=== PATIENT | female | born 1945 | race Caucasian/White ===

== ENCOUNTER → 2018-11-14 06:56 | Outpatient (CLI) | payer MEDICARE, BC, SELFPAY ==
--- NOTE | 2018-11-14 07:01 | BI_ITS ---
MAMMOGRAPHY - BILATERAL SCREENING REASON FOR EXAM: Female, 73 years old. Routine annual screening examination. PERTINENT HISTORY: Non-contributory. TECHNIQUE: Digital bilateral breast alem (3D mammographic acquisition) in the CC and MLO projections. 2-D mediolateral oblique (MLO) and craniocaudad (CC) views of both breasts were obtained. CAD: Full Field Digital Mammography with Computer Added Detection was performed. COMPARISON: Comparison is made with prior study dated October 15, 2017 and October 08, 2016. FINDINGS: Breast Composition: The breasts are heterogeneously dense, which may obscure small masses. There are no dominant masses or suspicious calcifications. No other significant abnormalities are identified. There has been no significant change since the prior study. BI/SCREENING MAMM (CAD), BILAT IMPRESSION: Stable bilateral screening mammogram. Yearly follow-up mammogram recommended. (A) ASSESSMENT CATEGORY: BIRADS Category 1: Negative. A letter regarding these results will be sent to the patient by the facility within 30 days. Approximately 10% of breast cancers are not detected by mammography. A normal mammogram should not delay biopsy of a clinically suspicious abnormality. [id number] Electronically Signed: Pool Chau MD at 9:00 EST Tel [phone], Service support ,
--- OUTSIDE RECORDS SUMMARY | 2019-02-15 16:43 | XMS RPT_ITS ---
:1945 Author Organization OHIP Care Team Providers Name Role Phone Rusty Milner Primary Care Unavailable JUAN DIEGO ISSA Referring Unavailable JUAN DIEGO ISSA Attending Unavailable AWA FARFAN Attending Unavailable AWA FARFAN Referring Unavailable Annia, Dr. Rusty Lala Primary Care Unavailable Annia, Dr. Rusty Lala Attending Unavailable Annia, Dr. Rusty Lala Referring Unavailable Annia, Dr. Rusty Lala Primary Care Unavailable EVELYN RIGGINS Attending Unavailable Annia, Dr. Rusty Lala Referring Unavailable Annia, Dr. 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 / Repository I71.4(ICD-10) PROCEDURES PROCEDURES No Procedure Records FoundRESULTS RESULTS SCREENING MAMM (CAD), Observed: 11/14/2018 Status: F Source: ERMELINDA LAFLEUR 7:01 AM [facility] REPOSITORY [facility] Imaging Services [address] [place] [address] SCREENING MAMM (CAD), BILAT MR#: [id number] Acct: [id number] Name: ZEESHAN ASHER Rep #: [id number] : 1945 F 73 From: Pool Chau MD PCP: Rusty Milner MD Status: REG CLI Study: SCREENING MAMM (CAD), BILAT Date of Exam: 11/14/18 Exam# [id number] Ordering Dr: Juan Diego Issa MAMMOGRAPHY - BILATERAL SCREENING REASON FOR EXAM: Female, 73 years old. Routine annual screening examination. PERTINENT HISTORY: Non-contributory. TECHNIQUE: Digital bilateral breast alem (3D mammographic acquisition) in the CC and MLO projections. 2-D mediolateral oblique (MLO) and craniocaudad (CC) views of both breasts were obtained. CAD: Full Field Digital Mammography with Computer Added Detection was performed. COMPARISON: Comparison is made with prior study dated October 15, 2017 and October 08, 2016. FINDINGS: Breast Composition: The breasts are heterogeneously dense, which may obscure small masses. There are no dominant masses or suspicious calcifications. No other significant abnormalities are identified. There has been no significant change since the prior study. BI/SCREENING MAMM (CAD), BILAT IMPRESSION: Stable bilateral screening mammogram. Yearly follow-up mammogram recommended. (A) ASSESSMENT CATEGORY: BIRADS Category 1: Negative. A letter regarding these results will be sent to the patient by the facility within 30 days. Approximately 10% of breast cancers are not detected by mammography. A normal mammogram should not delay biopsy of a clinically suspicious abnormality. [id number] Electronically Signed: oPol Chau MD at 9:00 EST Tel [phone], Service support , CC: JUAN DIEGO ISSA; Rusty Milner MD Pilot Teacher: Signed OFFICE VISIT (FAMILY Observed: 10/10/2018 Status: UNK Source: [facility] 5:52 AM HOSPITALS REPOSITORY Chief Complaint ZEESHAN ASHER is here for a follow-up for blood pressure. Patient would like to discuss the itching. Statess she has a few questions she would like to ask. Medication refills sent. Patient refused the flu shot. History of Present Illness Pt has a history of hypertension. Today in the office she feels more tense and she feels tense when her blood pressure is high. Pt has been checking blood pressure at home. Most of her blood pressure re adings at home are normal. Pt has a history of itching that she takes Hydroxyzine as need, which she believes is helping her. Pt has a history of hypothyroid, which she takes Levothyroxine daily. In July her labs were normal. Pt is not having any chest pains when she is walking. Review of Systems Constitutional: no chills, no fever and no night sweats. Eyes: no blurred vision and no eyesight problems. ENT: no hearing loss, no nasal congestion, no nasal discharge, no hoarseness and no sore throat. Neck: no mass(es) and no swelling. Cardiovascular: no chest pain, no intermittent leg claudication, no lower extremity edema, no palpitations and no syncope. Respiratory: no cough, no shortness of breath during exertion, no shortness of breath at rest and no wheezing. Gastrointestinal: no abdominal pain, no blood in stools, no constipation, no diarrhea, no melena, no nausea, no rectal pain and no vomiting. Genitourinary: no dysuria, no change in urinary frequency, no urinary hesitancy, no feelings of urinary urgency and no vaginal discharge. Musculoskeletal: no arthralgias, no back pain and no myalgias. Integumentary: no new skin lesions and no rashes. Neurological: no difficulty walking, no headache, no limb weakness, no numbness and no tingling. Psychiatric: no anxiety, no depression, no anhedonia and no substance use disorders. Endocrine: no recent weight gain and no recent weight loss. Hematologic/Lymphatic: no tendency for easy bruising and no swollen glands. 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) Benign essential hypertension (401.1) (I10) Added by Problem List Migration; 2013-11-01 Chest pain (786.50) (R07.9) Cough (786.2) (R05) Hyperlipidemia (272.4) (E78.5) Hypothyroidism (244.9) (E03.9) Immunization due (V05.9) (Z23) Insomnia (780.52) (G47.00) Itching (698.9) (L29.9) Osteopenia (733.90) (M85.80) Palpable abdominal aorta (785.9) (R09.89) Post-menopause (V49.81) (Z78.0) Vitamin D deficiency (268.9) (E55.9) Weight loss, unintentional (783.21) (R63.4) Past Medical History History of Acute laryngitis (464.00) (J04.0) History of Contusion of foot, left (924.20) (S90.32XA) History of Cough (786.2) (R05) History of Elevated alkaline phosphatase level (790.5) (R74.8) History of acute pharyngitis (V12.69) (Z87.09) History of arthritis (V13.4) (Z87.39) History of bone density study (V15.89) (Z92.89) 09/29/2012 osteopenia re-check in 2 years History of eczema (V13.3) (Z87.2) Added by Problem List Migration; 2013-10-31 History of hypertension (V12.59) (Z86.79) History of low back pain (V13.59) (Z87.39) History of psoriasis (V13.3) (Z87.2) History of sciatica (V12.49) (Z86.69) History of thyroid disorder (V12.29) (Z86.39) History of urinary frequency (V13.09) (Z87.898) History of Osteopenia (733.90) (M85.80) Added by Problem List Migration; 2013-11-01 History of Osteoporosis screening (V82.81) (Z13.820) History of Right knee pain (719.46) (M25.561) Surgical History History of Dilation And Curettage Family History Family history of Parkinson's disease (V17.2) (Z82.0) Family history of thyroid disease (V18.19) (Z83.49) Family history of Family history of diabetes mellitus (V18.0) (Z83.3) Family history of diabetes mellitus (V18.0) (Z83.3) Family history of hypertension (V17.49) (Z82.49) Social History Caffeine use (V49.89) (Z78.9) Daily caffeine consumption, 1 serving a day Exercises four times a week Never a smoker No alcohol use 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 Allergies No Known Drug Allergies Recorded By: Marimar Reynolds; 01/08/2014 4:32:04 PM Current Meds HydrALAZINE HCl - 10 MG Oral Tablet; TAKE 1 TABLET 3 times daily; Therapy: 23Vzc2282 to (Evaluate:21Dec2018) Requested for: 93Yoc9930; Last Rx:81Vag3073 Ordered Rx By: Rusty Milner; Dispense: 30 Days ; #:90 Tablet; Refill: 3;For: Benign essential hypertension; BULMARO = N; Verified Transmission to [address]; Msg to Pharmacy: this will letty e the place of the amlodipine; Last Updated By: MavenHut; 08/23/2018 9:05:29 AM Levothyroxine Sodium 75 MCG Oral Tablet; TAKE 1 TABLET DAILY DIRECTED; Therapy: 96Knf1881 to (Evaluate:67Pww0254) Requested for: 85Cau6444; Last Rx:70Pgx1927 Ordered Rx By: Rusty Milner; Dispense: 90 Days ; #:90 Tablet; Refill: 3;For: Hypothyroidism; BULMARO = N; Verified Transmission to [address]; Last Updated By: MavenHut; 06/07/2018 5:15:12 PM Melatonin 5 MG Oral Tablet; TAKE 1 TABLET Bedtime; Therapy: 32Vuy2989 to (Evaluate:24Api0368); Last Rx:24Dec2017 Ordered Rx By: Rusty Milner; Dispense: 30 Days ; #:30 Tablet; Refill: 6;For: Insomnia; BULMARO = N; Record HydrOXYzine Pamoate 25 MG Oral Capsule; TAKE 1 CAPSULE 3 TIMES DAILY NEEDED FOR ITCHING; Therapy: 63Shd7084 to (Evaluate:12Okt3432) Requested for: 08Mar2018; Last Rx:08Mar2018 Ordered Rx By: Rusty Milner; Dispense: 20 Days ; #:30 Capsule; Refill: 1;For: Itching; BULMARO = N; Verified Transmission to [address]; Last Updated By: MavenHut; 10/04/2018 5:18:02 PM Halobetasol Propionate 0.05 % External Ointment; APPLY SPARINGLY TO AFFECTED AREA(S) ONCE DAILY; Therapy: 13Whc5407 to (Last Rx:58Ayc3426) Requested for: 29May2014 Ordered Rx By: Rusty Milner; Dispense: 0 Days ; #:1 X 50 GM Tube; Refill: 0;For: PMH: History of eczema; BULMARO = N; Verified Transmission to [address]; Last Updated By: MavenHut; 05/29/2014 5:30:33 PM Vitamin D (Ergocalciferol) 81364 UNIT Oral Capsule; TAKE 1 CAPSULE WEEKLY; Therapy: 24Dec2016 to (Last Rx:09Fei9979) Requested for: 07Jun2017 Ordered Rx By: Rusty Milner; Dispense: 0 Days ; #:4 Capsule; Refill: 6;For: Vitamin D deficiency; BULMARO = N; Verified Transmission to [address]; Last Updated By: MavenHut; 06/07/2017 12:24:32 PM Hydrocortisone 2.5 % External Cream; Therapy: 42Cbc0865 to Recorded Dispense: 10 Days ; #:28; Refill: 0; BULMARO = N; Record; Last Updated By: Pretty Clark; 01/25/2014 7:55:49 AM Lotemax 0.5 % Ophthalmic Suspension; Therapy: 18Dec2015 to Recorded Dispense: 25 Days ; #:5; Refill: 0; BULMARO = N; Record; Last Updated By: Rusty Milner; 10/02/2016 9:57:39 AM Magnesium 500 MG Oral Tablet; Therapy: (Recorded:74Owe1487) to Recorded Dispense: 0 Days ; #: Sufficient; Refill: 0; BULMARO = N; Record; Last Updated By: Pretty Clark; 09/11/2016 9:19:36 AM Multi Vitamin Daily TABS; Therapy: (Recorded:19Vvm6854) to Recorded Dispense: 0 Days ; #: Sufficient; Refill: 0; BULMARO = N; Record; Last Updated By: Pretty Clark; 11/04/2015 7:25:18 AM [place] 3 CAPS; Therapy: (Recorded:00Eje3831) to Recorded Dispense: 0 Days ; #: Sufficient; Refill: 0; BULMARO = N; Record; Last Updated By: Pretty Clark; 11/04/2015 7:25:18 AM Os-Artem TABS; Therapy: (Recorded:57Asl3863) to Recorded Dispense: 0 Days ; #: Sufficient; Refill: 0; BULMARO = N; Record; Last Updated By: Pretty Clark; 09/11/2016 9:19:36 AM Vitamin E 100 UNIT Oral Capsule; Therapy: (Recorded:64Qtm8741) to Recorded Dispense: 0 Days ; #: Sufficient; Refill: 0; BULMARO = N; Record; Last Updated By: Pretty Clark; 11/04/2015 7:25:18 AM V-R Vitamin C TABS; Therapy: (Recorded:43Jjd2650) to Recorded Dispense: 0 Days ; #: Sufficient; Refill: 0; BULMARO = N; Record; Last Updated By: Pretty Clark; 11/04/2015 7:25:18 AM Vitals Vital Signs Recorded: 04Oct2018 09:12AMRecorded: 04Oct2018 08:40AM Jfuyugdr140, LUE, Gllgxg195, RUE, Sitting Ntwuifnvh15, LUE, Ptlfxd14, RUE, Sitting Xpslhikjyye25.7 F, Oral Heart Rate53 Tuqoekygroh93 Blood Pressure Cuff SizeAdult Zytblx844 lb 5 oz BMI Wdenffmiid21 BSA Calculated1.58 O2 Klwjwyvbus12, RA LMPpm Physical Exam Constitutional: Alert and in no acute distress. Well developed, well nourished. Eyes: Normal external exam. Pupils were equal in size, round, reactive to light (PERRL) with normal accommodation and extraocular movements intact (EOMI). Ears, Nose, Mouth, and Throat: External inspection of ears and nose: Normal. Hearing: Normal. Nasal mucosa, septum, and turbinates: Normal. Lips, teeth, and gums: Normal. Oropharynx: Normal. Neck: No neck mass was observed. Supple. Thyroid not enlarged and there were no palpable thyroid nodules. Cardiovascular: Heart rate and rhythm were normal, normal S1 and S2, no gallops, no murmurs and no pericardial rub. Pedal pulses: Normal. No peripheral edema. Pulmonary: No respiratory distress. Clear bilateral breath sounds. Abdomen: Soft nontender; no abdominal mass palpated. No organomegaly. Musculoskeletal: No joint swelling seen, normal movements of all extremities. Range of motion: Normal. Muscle strength/tone: Normal. Skin: Normal skin color and pigmentation, normal skin turgor, and no rash. Psychiatric: Judgment and insight: Intact. Mood and affect: Normal. Lymphatic: No cervical lymphadenopathy. Diagnoses/Problems Encounter for preventive health examination (V70.0) (Z00.00) Benign essential hypertension (401.1) (I10) Added by Problem List Migration; 2013-11-01 Insomnia (780.52) (G47.00) Itching (698.9) (L29.9) Hypothyroidism (244.9) (E03.9) Vitamin D deficiency (268.9) (E55.9) Orders Itching Renew: HydrOXYzine Pamoate 25 MG Oral Capsule; TAKE 1 CAPSULE 3 TIMES DAILY NEEDED FOR ITCHING Rx By: Rusty Milner; Dispense: 20 Days ; #:30 Capsule; Refill: 1;For: Itching; BULMARO = N; Verified Transmission to [facility]; Last Updated By: Deborah Parekh; 10/04/2018 5:18:02 PM Patient Discussion/Summary Over 1 history of hypertension. Today in the office your initial blood pressure was elevated. Repeat blood pressure is more normal. You've been checking her blood pressures at home and most of your blood pressures at home are normal. I'll ask that you keep checking her blood pressure at home I would want you to call me if the top number at home is above 150 on more than 3 days in a row or the bottom numbers above 90 for more than 3 days in a row Please remember to take the hydralazine 10 mg 3 times a day once in the morning once in the afternoon once in the evening Continue eating a healthy diet rich with fresh fruits fresh vegetables and lean proteins trying to avoid processed carbohydrates her simple sugars. Continue with regular exercise 30 minutes of walking every day is ideal #2 history of hypothyroid. Please stay on your current thyroid medication recent thyroid testing is normal this indicates you are taking the correct thyroid dose #3 recurrent itching. Please stay on your current dose of hydroxyzine 25 mg as needed for itching. #4 all other labs done recently are normal including her vitamin D If you remain healthy I would like to see you back in 4 months for follow-up. Signatures Electronically signed by : Rusty Milner MD; Oct 10 2018 5:52AM EST (Author) OFFICE VISIT (FAMILY Observed: 08/23/2018 Status: UNK Source: [facility]) 9:30 AM HOSPITALS REPOSITORY Chief Complaint ZEESHAN ASHER is here for a follow-up for blood pressure . Patient has a few things she would like to discuss today. No medication refills sent. Patient refused the flu shot. History of Present Illness Zeeshan is a 73 year old female, who presents today for a re- evaluation of of her blood pressure. She is currently taking Amlodipine, 5 mg for hypertension management. She is feeling side effects caused by the medication, she is having a chest sensation that she cannot describe, and she was having a slight headache. She stopped taking the medication to see if the symptoms would stop. She is currently taking Levothyroxine, 75 MCG for hypothyroid management. She is also taking Melatonin, 5 mg for insomnia management. She is taking Vitamin D 529842 UNIT for Vitamin D deficiency. Review of Systems Constitutional: no chills, no fever and no night sweats. Eyes: no blurred vision and no eyesight problems. ENT: no hearing loss, no nasal congestion, no nasal discharge, no hoarseness and no sore throat. Neck: no mass(es) and no swelling. Cardiovascular: no chest pain, no intermittent leg claudication, no lower extremity edema, no palpitations and no syncope. Respiratory: no cough, no shortness of breath during exertion, no shortness of breath at rest and no wheezing. Gastrointestinal: no abdominal pain, no blood in stools, no constipation, no diarrhea, no melena, no nausea, no rectal pain and no vomiting. Genitourinary: no dysuria, no change in urinary frequency, no urinary hesitancy, no feelings of urinary urgency and no vaginal discharge. Musculoskeletal: no arthralgias, no back pain and no myalgias. Integumentary: no new skin lesions and no rashes. Neurological: no difficulty walking, no headache, no limb weakness, no numbness and no tingling. Psychiatric: no anxiety, no depression, no anhedonia and no substance use disorders. Endocrine: no recent weight gain and no recent weight loss. Hematologic/Lymphatic: no tendency for easy bruising and no swollen glands. 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) Benign essential hypertension (401.1) (I10) Added by Problem List Migration; 2013-11-01 Cough (786.2) (R05) Hyperlipidemia (272.4) (E78.5) Hypothyroidism (244.9) (E03.9) Immunization due (V05.9) (Z23) Insomnia (780.52) (G47.00) Itching (698.9) (L29.9) Osteopenia (733.90) (M85.80) Palpable abdominal aorta (785.9) (R09.89) Post-menopause (V49.81) (Z78.0) Vitamin D deficiency (268.9) (E55.9) Weight loss, unintentional (783.21) (R63.4) Past Medical History History of Acute laryngitis (464.00) (J04.0) History of Contusion of foot, left (924.20) (S90.32XA) History of Cough (786.2) (R05) History of Elevated alkaline phosphatase level (790.5) (R74.8) History of acute pharyngitis (V12.69) (Z87.09) History of arthritis (V13.4) (Z87.39) History of bone density study (V15.89) (Z92.89) 09/29/2012 osteopenia re-check in 2 years History of eczema (V13.3) (Z87.2) Added by Problem List Migration; 2013-10-31 History of hypertension (V12.59) (Z86.79) History of low back pain (V13.59) (Z87.39) History of psoriasis (V13.3) (Z87.2) History of sciatica (V12.49) (Z86.69) History of thyroid disorder (V12.29) (Z86.39) History of urinary frequency (V13.09) (Z87.898) History of Osteopenia (733.90) (M85.80) Added by Problem List Migration; 2013-11-01 History of Osteoporosis screening (V82.81) (Z13.820) History of Right knee pain (719.46) (M25.561) Surgical History History of Dilation And Curettage Family History Family history of Parkinson's disease (V17.2) (Z82.0) Family history of thyroid disease (V18.19) (Z83.49) Family history of Family history of diabetes mellitus (V18.0) (Z83.3) Family history of diabetes mellitus (V18.0) (Z83.3) Family history of hypertension (V17.49) (Z82.49) Social History Caffeine use (V49.89) (Z78.9) Daily caffeine consumption, 1 serving a day Exercises four times a week Never a smoker No alcohol use 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 Allergies No Known Drug Allergies Recorded By: Marimar Reynolds; 01/08/2014 4:32:04 PM Current Meds AmLODIPine Besylate 5 MG Oral Tablet; TAKE 1 TABLET DAILY; Therapy: 17Yfe3587 to (Evaluate:84Una7194) Requested for: 33Fnu9754; Last Rx:73Okn4111 Ordered Rx By: Rusty Milner; Dispense: 30 Days ; #:30 Tablet; Refill: 6;For: Benign essential hypertension; BULMARO = N; Verified Transmission to [address]; Last Updated By: Meghna Parekh; 08/23/2018 8:56:01 AM Levothyroxine Sodium 75 MCG Oral Tablet; TAKE 1 TABLET DAILY DIRECTED; Therapy: 85Cel4162 to (Evaluate:67Xvi3106) Requested for: 32Ola3821; Last Rx:14Efc1434 Ordered Rx By: Rusty Milner; Dispense: 90 Days ; #:90 Tablet; Refill: 3;For: Hypothyroidism; BULMARO = N; Verified Transmission to [address]; Last Updated By: MavenHut; 06/07/2018 5:15:12 PM Melatonin 5 MG Oral Tablet; TAKE 1 TABLET Bedtime; Therapy: 84Qjx0636 to (Evaluate:53Axn6971); Last Rx:24Dec2017 Ordered Rx By: Rusty Milner; Dispense: 30 Days ; #:30 Tablet; Refill: 6;For: Insomnia; BULMARO = N; Record HydrOXYzine Pamoate 25 MG Oral Capsule; TAKE 1 CAPSULE 3 TIMES DAILY NEEDED FOR ITCHING; Therapy: 00Hfo8538 to (Evaluate:88Xxi8762) Requested for: 06Ssn3791; Last Rx:08Mar2018 Ordered Rx By: Rusty Milner; Dispense: 20 Days ; #:30 Capsule; Refill: 1;For: Itching; BULMARO = N; Verified Transmission to [address]; Last Updated By: MavenHut; 03/08/2018 8:06:31 AM Halobetasol Propionate 0.05 % External Ointment; APPLY SPARINGLY TO AFFECTED AREA(S) ONCE DAILY; Therapy: 84Wfn8035 to (Last Rx:53Wvc1782) Requested for: 60Omk2159 Ordered Rx By: Rusty Milner; Dispense: 0 Days ; #:1 X 50 GM Tube; Refill: 0;For: PMH: History of eczema; BULMARO = N; Verified Transmission to [address]; Last Updated By: MavenHut; 05/29/2014 5:30:33 PM Vitamin D (Ergocalciferol) 52474 UNIT Oral Capsule; TAKE 1 CAPSULE WEEKLY; Therapy: 24Dec2016 to (Last Rx:22Lhd1908) Requested for: 01Ral6295 Ordered Rx By: Rusty Milner; Dispense: 0 Days ; #:4 Capsule; Refill: 6;For: Vitamin D deficiency; BULMARO = N; Verified Transmission to [address]; Last Updated By: Deborah Parekh; 06/07/2017 12:24:32 PM Hydrocortisone 2.5 % External Cream; Therapy: 27Ifi3976 to Recorded Dispense: 10 Days ; #:28 CREA; Refill: 0; BULMARO = N; Record; Last Updated By: Pretty Clark; 01/25/2014 7:55:49 AM Lotemax 0.5 % Ophthalmic Suspension; Therapy: 18Dec2015 to Recorded Dispense: 25 Days ; #:5 SUSP; Refill: 0; BULMARO = N; Record; Last Updated By: Rusty Milner; 10/02/2016 9:57:39 AM Magnesium 500 MG Oral Tablet; Therapy: (Recorded:11Sep2016) to Recorded Dispense: 0 Days ; #: Sufficient TABS; Refill: 0; BULMARO = N; Record; Last Updated By: Pretty Clark; 09/11/2016 9:19:36 AM Multi Vitamin Daily TABS; Therapy: (Recorded:74Ujg6030) to Recorded Dispense: 0 Days ; #: Sufficient TABS; Refill: 0; BULMARO = N; Record; Last Updated By: Pretty Clark; 11/04/2015 7:25:18 AM [place] 3 CAPS; Therapy: (Recorded:41Rvh2709) to Recorded Dispense: 0 Days ; #: Sufficient CAPS; Refill: 0; BULMARO = N; Record; Last Updated By: Pretty Clark; 11/04/2015 7:25:18 AM Os-Artem TABS; Therapy: (Recorded:11Sep2016) to Recorded Dispense: 0 Days ; #: Sufficient TABS; Refill: 0; BULMARO = N; Record; Last Updated By: Pretty Clark; 09/11/2016 9:19:36 AM Vitamin E 100 UNIT Oral Capsule; Therapy: (Recorded:95Ygi5021) to Recorded Dispense: 0 Days ; #: Sufficient CAPS; Refill: 0; BULMARO = N; Record; Last Updated By: Pretty Clark; 11/04/2015 7:25:18 AM V-R Vitamin C TABS; Therapy: (Recorded:05Sge2702) to Recorded Dispense: 0 Days ; #: Sufficient TABS; Refill: 0; BULMARO = N; Record; Last Updated By: Pretty Clark; 11/04/2015 7:25:18 AM Vitals Vital Signs Recorded: 23Aug2018 07:59AM Gntgapwgpcc55.9 F, Oral Heart Rate54 Rstsnlbzpoh00 Yzopyfaa194, LUE, Sitting Xhnxfkzkx21, LUE, Sitting Blood Pressure Cuff SizeAdult Lozxdl689 lb BMI Bwumnrzkdt16.56 BSA Calculated1.57 O2 Ndqjmzrhxi60, RA LMPpm Physical Exam Constitutional: Alert and in no acute distress. Well developed, well nourished. Ears, Nose, Mouth, and Throat: External inspection of ears and nose: Normal. Otoscopic examination: Normal. Hearing: Normal. Oropharynx: Normal. Cardiovascular: Heart rate and rhythm were normal, normal S1 and S2, no gallops, no murmurs and no pericardial rub. Pulmonary: No respiratory distress. Clear bilateral breath sounds. Abdomen: Soft nontender; no abdominal mass palpated. Normal bowel sounds. Psychiatric: Judgment and insight: Intact. Mood and affect: Normal. Lymphatic: No cervical lymphadenopathy. Results/Data Ireviewed the EKG sinus bradycardia Diagnoses/Problems Chest pain (786.50) (R07.9) Benign essential hypertension (401.1) (I10) Orders Benign essential hypertension Start: HydrALAZINE HCl - 10 MG Oral Tablet; TAKE 1 TABLET 3 times daily Rx By: Rusty Milner; Dispense: 30 Days ; #:90 Tablet; Refill: 3;For: Benign essential hypertension; BULMARO = N; Verified Transmission to [facility]; Msg to Pharmacy: this will take the place of the amlodipine; Last Updated By: MavenHut; 08/23/2018 9:05:29 AM Chest pain IO EKG Electrocardiogram- 12 Lead; Status:Complete; Done: 23Aug2018 Perform:In Office; Due:85Lrj3297;Ordered; For:Chest pain; Ordered By:Rusty Milner; Provider Impressions #1 hypertension. We recently started you on amlodipine 5 mg once a day every day. The amlodipine didn't bring her blood pressure down however you develop the discomfort in the chest. You discontinue the amlodipine and t he discomfort in the chest improved. Today in the office we did an EKG which shows normal sinus rhythm no signs of any heart damage. The EKG does show that your heart is healthy. At this time I'm recommending that you start on hydralazine 10 milligrams one pill 3 times a day. This medication will help lower the blood pressure without causing side effects. Please check blood pres sures at home on this medicine. call me if you have side effects. With the elevated blood pressure would like to see back in 6 weeks to reevaluate Patient Discussion/Summary #1 hypertension. We recently started you on amlodipine 5 mg once a day every day. The amlodipine didn't bring her blood pressure down however you develop the discomfort in the chest. You discontinue the amlodipine and t he discomfort in the chest improved. Today in the office we did an EKG which shows normal sinus rhythm no signs of any heart damage. The EKG does show that your heart is healthy. At this time I'm recommending that you start on hydralazine 10 milligrams one pill 3 times a day. This medication will help lower the blood pressure without causing side effects. Please check blood pres sures at home on this medicine. call me if you have side effects. With the elevated blood pressure would like to see back in 6 weeks to reevaluate. By signing my name below, I, Sarai Garza, attest that this documentation has been prepared under the direction and in the presence of Dr. Rusty Milner. All medical record entries made by the Joseibe were at my direction and personally dictated by me. I have reviewed the chart and agree that the record accurately reflects my personal performance of the h istory, physical exam, discussion and plan. End of Encounter Meds Halobetasol Propionate 0.05 % External Ointment; APPLY SPARINGLY TO AFFECTED AREA(S) ONCE DAILY; Therapy: 10Wcn8230 to (Last Rx:79Qkl8285) Requested for: 67Cqa7120 Ordered HydrALAZINE HCl - 10 MG Oral Tablet; TAKE 1 TABLET 3 times daily; Therapy: 39Kwy3926 to (Evaluate:21Dec2018) Requested for: 57Bxq3276; Last Rx:43Dfm5586 Ordered Hydrocortisone 2.5 % External Cream; Therapy: 36Uhj4015 to Recorded HydrOXYzine Pamoate 25 MG Oral Capsule; TAKE 1 CAPSULE 3 TIMES DAILY NEEDED FOR ITCHING; Therapy: 44Yix6495 to (Evaluate:21Whj4523) Requested for: 43Hoa5001; Last Rx:08Mar2018 Ordered Levothyroxine Sodium 75 MCG Oral Tablet; TAKE 1 TABLET DAILY DIRECTED; Therapy: 02Joz0503 to (Evaluate:54Blm5125) Requested for: 48Umm3810; Last Rx:65Gyi4955 Ordered Lotemax 0.5 % Ophthalmic Suspension; Therapy: 18Dec2015 to Recorded Magnesium 500 MG Oral Tablet; Therapy: (Recorded:11Sep2016) to Recorded Melatonin 5 MG Oral Tablet; TAKE 1 TABLET Bedtime; Therapy: 04Fve6089 to (Evaluate:16Geg4569); Last Rx:24Dec2017 Ordered Multi Vitamin Daily TABS; Therapy: (Recorded:31Njv6703) to Recorded [place] 3 CAPS; Therapy: (Recorded:35Kif6299) to Recorded Os-Artem TABS; Therapy: (Recorded:11Sep2016) to Recorded Vitamin D (Ergocalciferol) 89728 UNIT Oral Capsule; TAKE 1 CAPSULE WEEKLY; Therapy: 24Dec2016 to (Last Rx:62Pgn2716) Requested for: 07Jun2017 Ordered Vitamin E 100 UNIT Oral Capsule; Therapy: (Recorded:82Mqy1575) to Recorded V-R Vitamin C TABS; Therapy: (Recorded:33Swk9178) to Recorded Signatures Electronically signed by : SARAI Garza; Aug 23 2018 8:51AM EST (Co-author) Electronically signed by : Rusty Milner MD; Aug 23 2018 9:30AM EST (Author) VASC LAB ABDOMINAL Observed: 08/10/2018 Status: F Source: [facility] AORTA/ILIAC/IVC ULTRA 6:38 AM [facility], [address] [place] [address], [address], [place] [address] and Vascular Lab Report Abdominal Aorta Iliac Ultrasound/IVC Ultrasound Patient Name: ZEESHAN Latham LB Reading Physician: [id number] Konrad Huerta DO Study Date: 08/10/2018 Referring Physician: Rusty Milner MD MRN/PID: [id number] PCP: Accession/Order#: [id number] CC Report to: Date of : 1945 Technologist: Jany Olivas RVT, RDMS Gender: F Technologist 2: Admission Status: Outpatient Location Performed: [facility] Diagnosis/ICD: I71.3-Abdominal aortic aneurysm, ruptured Procedure/CPT: 73355 Ultrasound, abdominal aorta, real time with image documentation, screening study for (AAA) CONCLUSIONS: Aorta/Common Iliac Arteries/IVC: The abdominal aorta and bilateral common iliac arteries demonstrate no evidence of aneurysm. Imaging & Doppler Findings: AORTA AP PSV Proximal 1.5 cm 84.0 cm/s Mid 1.4 cm 74.0 cm/s Distal 1.4 cm 71.0 cm/s RIGHT AP PSV NICOLE Proximal 0.80 cm 91.00 cm/s LEFT AP PSV NICOLE Proximal 0.80 cm 94.00 cm/s [id number] Konrad Huerta DO Final OFFICE VISIT (FAMILY Observed: 08/09/2018 Status: UNK Source: [facility] 8:39 AM HOSPITALS REPOSITORY Chief Complaint ZEESHAN ASHER is here for a follow-up for medication . Patient would like to discuss her blood pressure medication. No medication refills sent. Patient would like to discuss the flu shot and getting the l ower dose. Patient may be due for a colonoscopy. History of Present Illness Zeeshan is a 73 year old female, who presents today for medication follow up. She is currently taking Losartan, 50 mg for Hypertension management. She states that she stopped taking this medication in May due to side effects, she states that she did not feel right. She is also taking Levothyroxine, 75 MCG for Hypothyroidism management. She is taking Melatonin, 5 mg for insomnia management. She is also taking Vitamin D, 83218 UNIT for Vitamin D deficiency. She states that her itching is still there. She does not have any chest pain, headaches, or swelling in her ankles. She states that she is still using eye drops. Review of Systems Constitutional: no chills, no fever and no night sweats. Eyes: no blurred vision and no eyesight problems. ENT: no hearing loss, no nasal congestion, no nasal discharge, no hoarseness and no sore throat. Neck: no mass(es) and no swelling. Cardiovascular: no chest pain, no intermittent leg claudication, no lower extremity edema, no palpitations and no syncope. Respiratory: no cough, no shortness of breath during exertion, no shortness of breath at rest and no wheezing. Gastrointestinal: no abdominal pain, no blood in stools, no constipation, no diarrhea, no melena, no nausea, no rectal pain and no vomiting. Genitourinary: no dysuria, no change in urinary frequency, no urinary hesitancy, no feelings of urinary urgency and no vaginal discharge. Musculoskeletal: no arthralgias, no back pain and no myalgias. Integumentary: no new skin lesions and no rashes. Neurological: no difficulty walking, no headache, no limb weakness, no numbness and no tingling. Psychiatric: no anxiety, no depression, no anhedonia and no substance use disorders. Endocrine: no recent weight gain and no recent weight loss. Hematologic/Lymphatic: no tendency for easy bruising and no swollen glands. 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) Benign essential hypertension (401.1) (I10) Added by Problem List Migration; 2013-11-01 Cough (786.2) (R05) Hyperlipidemia (272.4) (E78.5) Hypothyroidism (244.9) (E03.9) Insomnia (780.52) (G47.00) Itching (698.9) (L29.9) Osteopenia (733.90) (M85.80) Post-menopause (V49.81) (Z78.0) Vitamin D deficiency (268.9) (E55.9) Weight loss, unintentional (783.21) (R63.4) Past Medical History History of Acute laryngitis (464.00) (J04.0) History of Contusion of foot, left (924.20) (S90.32XA) History of Cough (786.2) (R05) History of Elevated alkaline phosphatase level (790.5) (R74.8) History of acute pharyngitis (V12.69) (Z87.09) History of arthritis (V13.4) (Z87.39) History of bone density study (V15.89) (Z92.89) 09/29/2012 osteopenia re-check in 2 years History of eczema (V13.3) (Z87.2) Added by Problem List Migration; 2013-10-31 History of hypertension (V12.59) (Z86.79) History of low back pain (V13.59) (Z87.39) History of psoriasis (V13.3) (Z87.2) History of sciatica (V12.49) (Z86.69) History of thyroid disorder (V12.29) (Z86.39) History of urinary frequency (V13.09) (Z87.898) History of Osteopenia (733.90) (M85.80) Added by Problem List Migration; 2013-11-01 History of Osteoporosis screening (V82.81) (Z13.820) History of Right knee pain (719.46) (M25.561) Surgical History History of Dilation And Curettage Family History Family history of Parkinson's disease (V17.2) (Z82.0) Family history of thyroid disease (V18.19) (Z83.49) Family history of Family history of diabetes mellitus (V18.0) (Z83.3) Family history of diabetes mellitus (V18.0) (Z83.3) Family history of hypertension (V17.49) (Z82.49) Social History Caffeine use (V49.89) (Z78.9) Daily caffeine consumption, 1 serving a day Exercises four times a week Never a smoker No alcohol use 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 Allergies No Known Drug Allergies Recorded By: Marimar Reynolds; 01/08/2014 4:32:04 PM Current Meds Losartan Potassium 50 MG Oral Tablet; TAKE 1 TABLET DAILY; Therapy: 61Jis1651 to (Evaluate:51Uyc2978) Requested for: 05Jrr7307; Last Rx:58Bkw3697 Ordered Rx By: Rusty Milner; Dispense: 30 Days ; #:30 Tablet; Refill: 3;For: Benign essential hypertension; BULMARO = N; Verified Transmission to [facility] [address] [place] [address]; Msg to Pharmacy: She is no kalpesh mohit taking the lisinopril/HCTZ; Last Updated By: MavenHut; 08/09/2018 8:35:39 AM Levothyroxine Sodium 75 MCG Oral Tablet; TAKE 1 TABLET DAILY DIRECTED; Therapy: 66Utt1226 to (Evaluate:71Oyq4231) Requested for: 76Khz3195; Last Rx:33Adr4483 Ordered Rx By: Rusty Milner; Dispense: 90 Days ; #:90 Tablet; Refill: 3;For: Hypothyroidism; BULMARO = N; Verified Transmission to [address]; Last Updated By: MavenHut; 06/07/2018 5:15:12 PM Melatonin 5 MG Oral Tablet; TAKE 1 TABLET Bedtime; Therapy: 42Njp0427 to (Evaluate:15Qkg6738); Last Rx:24Dec2017 Ordered Rx By: Rusty Milner; Dispense: 30 Days ; #:30 Tablet; Refill: 6;For: Insomnia; BULMARO = N; Record HydrOXYzine Pamoate 25 MG Oral Capsule; TAKE 1 CAPSULE 3 TIMES DAILY NEEDED FOR ITCHING; Therapy: 00Wkt6294 to (Evaluate:38Gpy8532) Requested for: 70Fbh2715; Last Rx:49Zwm2874 Ordered Rx By: Rusty Milner; Dispense: 20 Days ; #:30 Capsule; Refill: 1;For: Itching; BULMARO = N; Verified Transmission to [address]; Last Updated By: MavenHut; 03/08/2018 8:06:31 AM Halobetasol Propionate 0.05 % External Ointment; APPLY SPARINGLY TO AFFECTED AREA(S) ONCE DAILY; Therapy: 92Nqb5072 to (Last Rx:62Djm4091) Requested for: 20Cva9197 Ordered Rx By: Rusty Milner; Dispense: 0 Days ; #:1 X 50 GM Tube; Refill: 0;For: PMH: History of eczema; BULMARO = N; Verified Transmission to [address]; Last Updated By: MavenHut; 05/29/2014 5:30:33 PM Vitamin D (Ergocalciferol) 99474 UNIT Oral Capsule; TAKE 1 CAPSULE WEEKLY; Therapy: 24Dec2016 to (Last Rx:29Vsl7630) Requested for: 67Cwg4796 Ordered Rx By: Rusty Milner; Dispense: 0 Days ; #:4 Capsule; Refill: 6;For: Vitamin D deficiency; BULMARO = N; Verified Transmission to [address]; Last Updated By: Deborah Parekh; 06/07/2017 12:24:32 PM Hydrocortisone 2.5 % External Cream; Therapy: 20Zjq3898 to Recorded Dispense: 10 Days ; #:28 CREA; Refill: 0; BULMARO = N; Record; Last Updated By: Pretty Clark; 01/25/2014 7:55:49 AM Lotemax 0.5 % Ophthalmic Suspension; Therapy: 18Dec2015 to Recorded Dispense: 25 Days ; #:5 SUSP; Refill: 0; BULMARO = N; Record; Last Updated By: Rusty Milner; 10/02/2016 9:57:39 AM Magnesium 500 MG Oral Tablet; Therapy: (Recorded:11Sep2016) to Recorded Dispense: 0 Days ; #: Sufficient TABS; Refill: 0; BULMARO = N; Record; Last Updated By: rPetty Clark; 09/11/2016 9:19:36 AM Multi Vitamin Daily TABS; Therapy: (Recorded:77Bko8572) to Recorded Dispense: 0 Days ; #: Sufficient TABS; Refill: 0; BULMARO = N; Record; Last Updated By: Pretty Clark; 11/04/2015 7:25:18 AM [place] 3 CAPS; Therapy: (Recorded:47Kqv3173) to Recorded Dispense: 0 Days ; #: Sufficient CAPS; Refill: 0; BULMARO = N; Record; Last Updated By: Pretty Clark; 11/04/2015 7:25:18 AM Os-Artem TABS; Therapy: (Recorded:11Sep2016) to Recorded Dispense: 0 Days ; #: Sufficient TABS; Refill: 0; BULMARO = N; Record; Last Updated By: Pretty Clark; 09/11/2016 9:19:36 AM Vitamin E 100 UNIT Oral Capsule; Therapy: (Recorded:24Gdl6278) to Recorded Dispense: 0 Days ; #: Sufficient CAPS; Refill: 0; BULMARO = N; Record; Last Updated By: Pretty Clark; 11/04/2015 7:25:18 AM V-R Vitamin C TABS; Therapy: (Recorded:27Lcg5064) to Recorded Dispense: 0 Days ; #: Sufficient TABS; Refill: 0; BULMARO = N; Record; Last Updated By: Pretty Clark; 11/04/2015 7:25:18 AM Vitals Vital Signs Recorded: 09Aug2018 07:54AM Ecszvozidwv26.7 F, Oral Heart Rate53 Cedoxksstnv26 Wegnzmxe531 mm Hg, LUE, Sitting Maggvskjr84 mm Hg, LUE, Sitting Blood Pressure Cuff SizeAdult Oyqwgv983 lb 6 oz BMI Iydjckqmxn70.45 kg/m2 BSA Calculated1.57 m2 O2 Dcjyiwbjqy64, RA LMPpm Physical Exam Constitutional: Alert and in no acute distress. Well developed, well nourished. Ears, Nose, Mouth, and Throat: External inspection of ears and nose: Normal. Otoscopic examination: Normal. Hearing: Normal. Nasal mucosa, septum, and turbinates: Normal. Oropharynx: Normal. Neck: No neck mass was observed. Supple. Thyroid not enlarged and there were no palpable thyroid nodules. Cardiovascular: Heart rate and rhythm were normal, normal S1 and S2, no gallops, no murmurs and no pericardial rub. Carotid pulses: Normal with no bruits. Abdominal aorta: Abnormal. (mildly enlarged. ) Pedal pulses: Normal. No peripheral edema. Pulmonary: No respiratory distress. Clear bilateral breath sounds. Abdomen: Soft nontender; no abdominal mass palpated. Normal bowel sounds. Skin: Normal skin color and pigmentation, normal skin turgor, and no rash. Psychiatric: Judgment and insight: Intact. Alert and oriented x 3. Mood and affect: Normal. Lymphatic: No cervical lymphadenopathy. Diagnoses/Problems Benign essential hypertension (401.1) (I10) Added by Problem List Migration; 2013-11-01 Palpable abdominal aorta (785.9) (R09.89) Itching (698.9) (L29.9) Hypothyroidism (244.9) (E03.9) Vitamin D deficiency (268.9) (E55.9) Orders Benign essential hypertension Start: AmLODIPine Besylate 5 MG Oral Tablet; TAKE 1 TABLET DAILY Rx By: Rusty Milner; Dispense: 30 Days ; #:30 Tablet; Refill: 6;For: Benign essential hypertension; BULMARO = N; Sent To: [facility] #3 Itching Dermatology Referral Evaluation and Treatment Evaluate AND Treat Status: Hold For - Scheduling Requested for: 60Vgh7659 Ordered;For: Itching; Ordered By: Rusty Milner Performed: Due: 57Dho2985 Palpable abdominal aorta VASC LAB Abdominal Aorta/Iliac/IVC Ultrasound; Status:Hold For - Scheduling,Retrospective Authorization; Requested for:65Ceg4209; Perform:Non Facility; Due:30Eiy0345; Last Updated By:Joe Allen; 08/09/2018 8:35:29 AM;Ordered; For:Palpable abdominal aorta; Ordered By:Rusty Milner; Patient Discussion/Summary #1 history of hypertension. Today in the office blood pressures elevated. In May you decided to stop taking the losartan is you are having side effects. You've been monitoring your blood pressure at home and you've noticed the blood pressure to be elevated at home. At this time you're not having any headaches blurry vision chest pain shortness of breath or swelling of the lower extremities Treatment plan starting today will be to have you start on amlodipine 5 mg once a day every day. The prescription was sent to the pharmacy. Please check a blood pressure reading once in the morning once in the evening for 2 weeks and send me those results. The goal for the systolic or top number on the blood pressure should be less than 140. Diastolic or lower blood pressure number should be less than 80. By reducing your blood pressure we are reducing her risk for heart attack and stroke #2 history of enlarged abdominal aorta. I want you to have an ultrasound of the abdominal aorta which is the main blood vessel in her abdomen. The ultrasound will determine if this is enlarged. We will call you with those results #3 history of recurrent itching. Please continue taking current doses of hydroxyzine which should be releasing her reducing the amount of itching you are doing. I'm also recommending that you follow up with the medical doctor. A new referral was placed #4 because you're blood pressure so high want to see you back in 2 weeks please correlate bring her blood pressure readings with you at that time. By signing my name below, I, Sarai Garza, attest that this documentation has been prepared under the direction and in the presence of Dr. Rusty Milner. All medical record entries made by the Joseibe were at my direction and personally dictated by me. I have reviewed the chart and agree that the record accurately reflects my personal performance of the h istory, physical exam, discussion and plan. End of Encounter Meds AmLODIPine Besylate 5 MG Oral Tablet; TAKE 1 TABLET DAILY; Therapy: 52Uwb0162 to (Evaluate:88Bkt3500); Last Rx:84Qxy4974 Ordered Halobetasol Propionate 0.05 % External Ointment; APPLY SPARINGLY TO AFFECTED AREA(S) ONCE DAILY; Therapy: 70Uto4934 to (Last Rx:67Cnz0896) Requested for: 91Wxm5141 Ordered Hydrocortisone 2.5 % External Cream; Therapy: 65Mfq4423 to Recorded HydrOXYzine Pamoate 25 MG Oral Capsule; TAKE 1 CAPSULE 3 TIMES DAILY NEEDED FOR ITCHING; Therapy: 95Nuv9995 to (Evaluate:02Wfa3735) Requested for: 06Ruk8803; Last Rx:09Jpf2992 Ordered Levothyroxine Sodium 75 MCG Oral Tablet; TAKE 1 TABLET DAILY DIRECTED; Therapy: 50Lqc5131 to (Evaluate:61Byk0028) Requested for: 03Cde5587; Last Rx:43Wfs6146 Ordered Lotemax 0.5 % Ophthalmic Suspension; Therapy: 18Dec2015 to Recorded Magnesium 500 MG Oral Tablet; Therapy: (Recorded:11Sep2016) to Recorded Melatonin 5 MG Oral Tablet; TAKE 1 TABLET Bedtime; Therapy: 92Ktj8463 to (Evaluate:54Vqp8622); Last Rx:24Dec2017 Ordered Multi Vitamin Daily TABS; Therapy: (Recorded:61Jdp3553) to Recorded [place] 3 CAPS; Therapy: (Recorded:31Zlz1048) to Recorded Os-Artem TABS; Therapy: (Recorded:11Sep2016) to Recorded Vitamin D (Ergocalciferol) 89574 UNIT Oral Capsule; TAKE 1 CAPSULE WEEKLY; Therapy: 24Dec2016 to (Last Rx:46Nkh8931) Requested for: 93Mvc7820 Ordered Vitamin E 100 UNIT Oral Capsule; Therapy: (Recorded:70Pba4324) to Recorded V-R Vitamin C TABS; Therapy: (Recorded:39Jri0416) to Recorded Signatures Electronically signed by : SARAI Garza; Aug 09 2018 8:32AM EST (Co-author) Electronically signed by : Rusty Milner MD; Aug 09 2018 8:39AM EST (Author) TSH Collected: 06/03/2018 Status: F Source: [place] 9:04 AM [facility] REPOSITORY Order Comment: PATIENT FASTING TYPE CODE TESTS RESULT OUT OF RANGE REFERENCE UNITS LAB TSH2(LOINC) 0.44 - 3.98 mIU/L TSH 2.30 Result Comment: TSH testing is performed using different testing methodology at [facility] than at other [facility]. Direct result comparisons should only be made within the same method. . Patients receiving more than 5 mg/day of biotin may have interference in test results. A sample should be taken no sooner than eight hours after previous dose. Contact [phone] for additional information. Performed By: #### TSH2 #### [facility] [address] [place] [address] COMPREHENSIVE PANEL Collected: 06/03/2018 Status: F Source: [place] [address] [place] [address] REPOSITORY Order Comment: PATIENT FASTING TYPE CODE TESTS RESULT OUT OF REFERENCE UNITS RANGE LAB GLU(LOINC) 74 - 99 mg/dL GLUCOSE 98 LAB SOD(LOINC) 136 - 145 mmol/L SODIUM 142 LAB K(LOINC) 3.5 - 5.3 mmol/L POTASSIUM 4.4 LAB CHLOR(LOIN 98 - 107 mmol/L C) CHLORIDE 107 LAB BIC(LOINC) 21 - 32 mmol/L BICARBONATE 28 LAB ANGAP(LOIN 10 - 20 mmol/L C) ANION GAP 11 LAB UREA(LOINC 6 - 23 mg/dL ) UREA NITROGEN 19 LAB CREA(LOINC 0.50 - 1.05 mg/dL ) CREATININE 0.88 LAB GFRFN(LOIN >60 mL/min/1.7 C) 3m2 GFR-NON AM. >60 LAB GFRAA(LOIN >60 mL/min/1.7 C) 3m2 GFR- AM. >60 Result Comment: CALCULATIONS OF ESTIMATED GFR ARE PERFORMED USING THE MDRD STUDY EQUATION FOR THE IDMS-TRACEABLE CREATININE METHODS. CLIN CHEM 2007;53:766-72 LAB CA(LOINC) 8.6 - 10.6 mg/dL CALCIUM 9.6 LAB ALB(LOINC) 3.4 - 5.0 g/dL ALBUMIN 4.0 LAB AP(LOINC) 33 - 136 U/L ALKALINE PHOSPHATASE 88 LAB TP(LOINC) 6.4 - 8.2 g/dL TOTAL PROTEIN 6.7 LAB AST(LOINC) 9 - 39 U/L AST 20 LAB TBILI(LOINC) 0.0 - 1.2 mg/dL BILIRUBIN,TOTAL 0.5 LAB ALT(LOINC) 7 - 45 U/L ALT 14 Result Comment: Patients treated with Sulfasalazine may generate falsely decreased results for ALT. Performed By: #### CMP #### [facility] [address] [place] [address] LIPID PANEL (CORONARY Collected: 06/03/2018 Status: F Source: [facility] 9:04 AM [facility] REPOSITORY Order Comment: PATIENT FASTING TYPE CODE TESTS RESULT OUT OF REFERENCE UNITS RANGE LAB CHOL(LOINC 0 - 199 mg/dL ) CHOLESTEROL 192 Result Comment: . AGE DESIRABLE BORDERLINE HIGH HIGH 0-19 Y 0 - 169 170 - 199 >/= 200 20-24 Y 0 - 189 190 - 224 >/= 225 >24 Y 0 - 199 200 - 239 >/= 240 All ranges are based on fasting samples. Specific therapeutic targets will vary based on patient-specific cardiac risk. . Pediatric guidelines reference:Pediatrics 2011, 128(S5). Adult guidelines reference: NCEP ATPIII Guidelines, AMIE 2001, 258:2486-97 . Venipuncture immediately after or during the administration of Metamizole may lead to falsely low results. Testing should be performed immediately prior to Metamizole dosing. LAB HDL(LOINC) mg/dL HDL-CHOLESTEROL 72.7 Result Comment: . AGE VERY LOW LOW NORMAL HIGH 0-19 Y < 35 < 40 40-45 ---- 20-24 Y ---- < 40 >45 ---- >24 Y ---- < 40 40-60 >60 . LAB CHHDL(LOINC) CHOLESTEROL/HDL RATIO 2.6 Result Comment: REF VALUES DESIRABLE < 3.4 HIGH RISK > 5.0 LAB LDLF(LOINC) 0 - 99 mg/dL High LDL 107 Result Comment: . NEAR BORD AGE DESIRABLE OPTIMAL HIGH HIGH VERY HIGH 0-19 Y 0 - 109 --- 110-129 >/= 130 ---- 20-24 Y 0 - 119 --- 120-159 >/= 160 ---- >24 Y 0 - 99 100-129 130-159 160-189 >/=190 . LAB VLDL(LOINC) 0 - 40 mg/dL VLDL 13 LAB TRIG(LOINC) 0 - 149 mg/dL TRIGLYCERIDES 64 Result Comment: . AGE DESIRABLE BORDERLINE HIGH HIGH VERY HIGH 0 D-90 D 19 - 174 ---- ---- ---- 91 D- 9 Y 0 - 74 75 - 99 >/= 100 ---- 10-19 Y 0 - 89 90 - 129 >/= 130 ---- 20-24 Y 0 - 114 115 - 149 >/= 150 ---- >24 Y 0 - 149 150 - 199 200- 499 >/= 500 . Venipuncture immediately after or during the administration of Metamizole may lead to falsely low results. Testing should be performed immediately prior to Metamizole dosing. Performed By: #### LIPID #### [facility] [address] [place] [address] OFFICE VISIT (FAMILY Observed: 06/03/2018 Status: UNK Source: [facility]) 9:03 AM HOSPITALS REPOSITORY Chief Complaint ZEESHAN ASHER is here for a follow-up for HTN. Patient is fasting today. Patient states her blood pressure goes up and down. Denies headaches, lightheadedness and dizziness. Patient would like to discuss an ointment. No medication refills sent. Patient may be due for a colonoscopy. History of Present Illness Zeeshan is a 73 y/o female presenting to the clinic for HTN management. HTN - She is not taking any HTN medications. She was having itching. One of the recommendations was to stop taking her BP medications. She states that on one occasion she had chest discomfort after yard work and she took an aspirin. She states that her BP readings have been inconsistent. She denies CP, chest pressure and chest tightness upon exertion. Skin - She no longer has burning or itching. She believes it may have been her humidifier. Hypothyroidism - She is taking Levothyroxine Sodium 75 mcg. Moods - She had 2 people that were close to her pass away. She states that she gets melancholy. She has not been talking to anyone about her feelings. She has been going to hoahaoism. She has a son that lives in [place]. Review of Systems Constitutional: no chills, no fever and no night sweats. Eyes: no blurred vision and no eyesight problems. ENT: no hearing loss, no nasal congestion, no nasal discharge, no hoarseness and no sore throat. Neck: no mass(es) and no swelling. Cardiovascular: as noted in HPI, no chest pain, no intermittent leg claudication, no lower extremity edema, no palpitations and no syncope. Respiratory: no cough, no shortness of breath during exertion, no shortness of breath at rest and no wheezing. Gastrointestinal: no abdominal pain, no blood in stools, no constipation, no diarrhea, no melena, no nausea, no rectal pain and no vomiting. Genitourinary: no dysuria, no change in urinary frequency, no urinary hesitancy, no feelings of urinary urgency and no vaginal discharge. Musculoskeletal: no arthralgias, no back pain and no myalgias. Integumentary: as noted in HPI, no new skin lesions and no rashes. Neurological: no difficulty walking, no headache, no limb weakness, no numbness and no tingling. Psychiatric: as noted in HPI, no anxiety, no depression, no anhedonia and no substance use disorders. Endocrine: as noted in HPI, no recent weight gain and no recent weight loss. Hematologic/Lymphatic: no tendency for easy bruising and no swollen glands. 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) Benign essential hypertension (401.1) (I10) Added by Problem List Migration; 2013-11-01 Cough (786.2) (R05) Hyperlipidemia (272.4) (E78.5) Hypothyroidism (244.9) (E03.9) Insomnia (780.52) (G47.00) Itching (698.9) (L29.9) Osteopenia (733.90) (M85.80) Post-menopause (V49.81) (Z78.0) Vitamin D deficiency (268.9) (E55.9) Weight loss, unintentional (783.21) (R63.4) Past Medical History History of Acute laryngitis (464.00) (J04.0) History of Contusion of foot, left (924.20) (S90.32XA) History of Cough (786.2) (R05) History of Elevated alkaline phosphatase level (790.5) (R74.8) History of acute pharyngitis (V12.69) (Z87.09) History of arthritis (V13.4) (Z87.39) History of bone density study (V15.89) (Z92.89) 09/29/2012 osteopenia re-check in 2 years History of eczema (V13.3) (Z87.2) Added by Problem List Migration; 2013-10-31 History of hypertension (V12.59) (Z86.79) History of low back pain (V13.59) (Z87.39) History of psoriasis (V13.3) (Z87.2) History of sciatica (V12.49) (Z86.69) History of thyroid disorder (V12.29) (Z86.39) History of urinary frequency (V13.09) (Z87.898) History of Osteopenia (733.90) (M85.80) Added by Problem List Migration; 2013-11-01 History of Osteoporosis screening (V82.81) (Z13.820) History of Right knee pain (719.46) (M25.561) Surgical History History of Dilation And Curettage Family History Family history of Parkinson's disease (V17.2) (Z82.0) Family history of thyroid disease (V18.19) (Z83.49) Family history of Family history of diabetes mellitus (V18.0) (Z83.3) Family history of diabetes mellitus (V18.0) (Z83.3) Family history of hypertension (V17.49) (Z82.49) Social History Caffeine use (V49.89) (Z78.9) Daily caffeine consumption, 1 serving a day Exercises four times a week Never a smoker No alcohol use 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 Allergies No Known Drug Allergies Recorded By: Marimar Reynolds; 01/08/2014 4:32:04 PM Current Meds Lisinopril-Hydrochlorothiazide 20-25 MG Oral Tablet; TAKE 1 TABLET DAILY; Therapy: 31Jan2018 to (Evaluate:89Mlq9336) Requested for: 31Jan2018; Last Rx:31Jan2018 Ordered Rx By: Rusty Milner; Dispense: 90 Days ; #:90 Tablet; Refill: 3;For: Benign essential hypertension; BULMARO = N; Verified Transmission to [address]; Msg to Pharmacy: [facility] she is to discontinue the lisinopril 20 mg; Last Updated By: MavenHut; 06/03/2018 8:40:36 AM Levothyroxine Sodium 75 MCG Oral Tablet; TAKE 1 TABLET DAILY DIRECTED; Therapy: 44Tlz0336 to (Evaluate:19Dec2017) Requested for: 24Dec2016; Last Rx:24Dec2016 Ordered Rx By: Rusty Milner; Dispense: 90 Days ; #:90 Tablet; Refill: 3;For: Hypothyroidism; BULMARO = N; Verified Transmission to [address]; Last Updated By: MavenHut; 12/24/2016 10:04:06 AM Melatonin 5 MG Oral Tablet; TAKE 1 TABLET Bedtime; Therapy: 97Zck0984 to (Evaluate:22Plq0777); Last Rx:24Dec2017 Ordered Rx By: Rusty Milner; Dispense: 30 Days ; #:30 Tablet; Refill: 6;For: Insomnia; BULMARO = N; Record HydrOXYzine Pamoate 25 MG Oral Capsule; TAKE 1 CAPSULE 3 TIMES DAILY NEEDED FOR ITCHING; Therapy: 97Syq6661 to (Evaluate:51Sod0531) Requested for: 08Mar2018; Last Rx:08Mar2018 Ordered Rx By: Rusty Milner; Dispense: 20 Days ; #:30 Capsule; Refill: 1;For: Itching; BULMARO = N; Verified Transmission to [address]; Last Updated By: MavenHut; 03/08/2018 8:06:31 AM Halobetasol Propionate 0.05 % External Ointment; APPLY SPARINGLY TO AFFECTED AREA(S) ONCE DAILY; Therapy: 79Fqx5398 to (Last Rx:79Jma0568) Requested for: 48Isb2754 Ordered Rx By: Rusty Milner; Dispense: 0 Days ; #:1 X 50 GM Tube; Refill: 0;For: PMH: History of eczema; BULMARO = N; Verified Transmission to [address]; Last Updated By: MavenHut; 05/29/2014 5:30:33 PM Vitamin D (Ergocalciferol) 01247 UNIT Oral Capsule; TAKE 1 CAPSULE WEEKLY; Therapy: 24Dec2016 to (Last Rx:47Npf3910) Requested for: 81Vxe5333 Ordered Rx By: Rusty Milner; Dispense: 0 Days ; #:4 Capsule; Refill: 6;For: Vitamin D deficiency; BULMARO = N; Verified Transmission to [address]; Last Updated By: MavenHut; 06/07/2017 12:24:32 PM Ciprofloxacin HCl - 0.3 % Ophthalmic Solution; Therapy: 22Feb2018 to Recorded Dispense: 12 Days ; #:5 SOLN; Refill: 0; BULMARO = N; Record; Last Updated By: Nelly Quinn; 06/03/2018 8:20:47 AM Hydrocortisone 2.5 % External Cream; Therapy: 25Jul2013 to Recorded Dispense: 10 Days ; #:28 CREA; Refill: 0; BULMARO = N; Record; Last Updated By: Pretty Clark; 01/25/2014 7:55:49 AM Lotemax 0.5 % Ophthalmic Suspension; Therapy: 18Dec2015 to Recorded Dispense: 25 Days ; #:5 SUSP; Refill: 0; BULMARO = N; Record; Last Updated By: Rusty Minler; 10/02/2016 9:57:39 AM Magnesium 500 MG Oral Tablet; Therapy: (Recorded:11Sep2016) to Recorded Dispense: 0 Days ; #: Sufficient TABS; Refill: 0; BULMARO = N; Record; Last Updated By: Pretty Clark; 09/11/2016 9:19:36 AM Multi Vitamin Daily TABS; Therapy: (Recorded:92Hue2151) to Recorded Dispense: 0 Days ; #: Sufficient TABS; Refill: 0; BULMARO = N; Record; Last Updated By: Pretty Clark; 11/04/2015 7:25:18 AM [place] 3 CAPS; Therapy: (Recorded:94Lwx6290) to Recorded Dispense: 0 Days ; #: Sufficient CAPS; Refill: 0; BULMARO = N; Record; Last Updated By: Pretty Clark; 11/04/2015 7:25:18 AM Os-Artem TABS; Therapy: (Recorded:64Ywx4998) to Recorded Dispense: 0 Days ; #: Sufficient TABS; Refill: 0; BULMARO = N; Record; Last Updated By: Pretty Clark; 09/11/2016 9:19:36 AM Vitamin E 100 UNIT Oral Capsule; Therapy: (Recorded:04Vlw9990) to Recorded Dispense: 0 Days ; #: Sufficient CAPS; Refill: 0; BULMARO = N; Record; Last Updated By: Pretty Clark; 11/04/2015 7:25:18 AM V-R Vitamin C TABS; Therapy: (Recorded:44Ojx0141) to Recorded Dispense: 0 Days ; #: Sufficient TABS; Refill: 0; BULMARO = N; Record; Last Updated By: Pretty Clark; 11/04/2015 7:25:18 AM Vitals Vital Signs Recorded: 73Tae9805 08:45AMRecorded: 61Zdq6297 08:24AM Vvstddicwpv30 F, Oral Heart Rate52 Hzhuioxayyx30 Plqxnxai024, LUE, Vdkjhki067, LUE, Sitting Vrnzcgohx65, LUE, Sjpxexc81, LUE, Sitting Blood Pressure Cuff SizeAdult Ueytfv274 lb 6 oz BMI Kqkmfkxkel29.45 BSA Calculated1.57 O2 Cdjapzgqjt35, RA LMPpm Physical Exam Constitutional: Alert and in no acute distress. Well developed, well nourished. Ears, Nose, Mouth, and Throat: External inspection of ears and nose: Normal. Otoscopic examination: Normal. Hearing: Normal. Nasal mucosa, septum, and turbinates: Normal. Lips, teeth, and gums: Normal. Oropharynx: Normal. Neck: No neck mass was observed. Supple. Thyroid not enlarged and there were no palpable thyroid nodules. Cardiovascular: Heart rate and rhythm were normal, normal S1 and S2, no gallops, no murmurs and no pericardial rub. Carotid pulses: Normal with no bruits. Pedal pulses: Normal. No peripheral edema. Pulmonary: No respiratory distress. Clear bilateral breath sounds. Abdomen: Soft nontender; no abdominal mass palpated. Normal bowel sounds. No organomegaly. Musculoskeletal: No joint swelling seen, normal movements of all extremities. Muscle strength/tone: Normal. Skin: Normal skin color and pigmentation, normal skin turgor, and no rash. Psychiatric: Judgment and insight: Intact. Mood and affect: Normal. Lymphatic: No cervical lymphadenopathy. Diagnoses/Problems Benign essential hypertension (401.1) (I10) Added by Problem List Migration; 2013-11-01 Hypothyroidism (244.9) (E03.9) Hyperlipidemia (272.4) (E78.5) Vitamin D deficiency (268.9) (E55.9) Orders Hyperlipidemia Comprehensive Metabolic Panel; Status:Active - Retrospective Authorization; Requested for:62Ezj2652; Perform:Lab Services - Lab To Draw (Blood Test); Due:01Sep2018; Last Updated By:Quique Whipple; 06/03/2018 8:47:01 AM;Ordered; For:Hyperlipidemia; Ordered By:Rusty Milner; Lipid Panel; Source:Blood ([facility]); Status:Active - Retrospective Authorization; Requested for:92Feg8893; Perform:Lab Services - Lab To Draw (Blood Test); Due:01Sep2018; Last Updated By:Quique Whipple; 06/03/2018 8:47:01 AM;Ordered; For:Hyperlipidemia; Ordered By:Rusty Milner; Hypothyroidism TSH - Thyroid Stimulating Hormone, Serum; Source:Blood ([facility]); Status:Active - Retrospective Authorization; Requested for:86Mzo8004; Perform:Lab Services - Lab To Draw (Blood Test); Due:01Sep2018; Last Updated By:Quique Whipple; 06/03/2018 8:47:01 AM;Ordered; For:Hypothyroidism; Ordered By:Rusty Milner; Patient Discussion/Summary #1 hypertension. Blood pressures elevated today in the office. You stop the lisinopril hydrochlorothiazide on my advice due to the rash or itching you are experiencing. At this time I want you to start a new blood pressure medication losartan 50 mg once a day every day. This medicine should help lower your blood pressure to prevent heart attack and stroke. Please check your blood pressure at home once in the morning once in the knee for 2 weeks and send me those results. #2 history of hypothyroid. We will check thyroid function with today's lab work and call you with those results. We will adjust medication if needed #3 history of elevated cholesterol. Continue eating a healthy diet rich with fresh fruits and fresh vegetables and lean protein. We will check cholesterol with today's labs and call you with those results #4 intermittent discomfort with mowing the lawn. You had an episode of discomfort after mowing the lawn. You came in the house and has something to eat and drink and the discomfort improved. I think thi s was most likely due to some dehydration. You have mowing the lawn since and have had no symptoms. I last that you continue to observe and if you continue to develop discomfort with activity please call me Because I'm starting you on a new medicine I want to see back in 2 months but you will send me results of blood pressure in 2 weeks we will call you next week with the results of lab work. By signing my name below, I, Jose Fulleribdustin, attest that this documentation has been prepared under the direction and in the presence of Dr. Rusty Milner. All medical record entries made by the Scribe were at my direction and personally dictated by me. I have reviewed the chart and agree that the record accurately reflects my personal performance of the h istory, physical exam, discussion and plan. (Dr. Rusty Milner). End of Encounter Meds Ciprofloxacin HCl - 0.3 % Ophthalmic Solution; Therapy: 22Feb2018 to Recorded Halobetasol Propionate 0.05 % External Ointment; APPLY SPARINGLY TO AFFECTED AREA(S) ONCE DAILY; Therapy: 91Iup5752 to (Last Rx:10Mqm1284) Requested for: 29May2014 Ordered Hydrocortisone 2.5 % External Cream; Therapy: 25Jul2013 to Recorded HydrOXYzine Pamoate 25 MG Oral Capsule; TAKE 1 CAPSULE 3 TIMES DAILY NEEDED FOR ITCHING; Therapy: 38Wap5813 to (Evaluate:34Doi4946) Requested for: 08Mar2018; Last Rx:08Mar2018 Ordered Levothyroxine Sodium 75 MCG Oral Tablet; TAKE 1 TABLET DAILY DIRECTED; Therapy: 68Cxi3010 to (Evaluate:19Dec2017) Requested for: 24Dec2016; Last Rx:24Dec2016 Ordered Losartan Potassium 50 MG Oral Tablet; TAKE 1 TABLET DAILY; Therapy: 99Zzd1336 to (Evaluate:01Oct2018) Requested for: 03Jun2018; Last Rx:03Jun2018 Ordered Lotemax 0.5 % Ophthalmic Suspension; Therapy: 18Dec2015 to Recorded Magnesium 500 MG Oral Tablet; Therapy: (Recorded:11Sep2016) to Recorded Melatonin 5 MG Oral Tablet; TAKE 1 TABLET Bedtime; Therapy: 63Nwl2101 to (Evaluate:22Jul2018); Last Rx:24Dec2017 Ordered Multi Vitamin Daily TABS; Therapy: (Recorded:00Mng9549) to Recorded [place] 3 CAPS; Therapy: (Recorded:37Aly6036) to Recorded Os-Artem TABS; Therapy: (Recorded:11Sep2016) to Recorded Vitamin D (Ergocalciferol) 37662 UNIT Oral Capsule; TAKE 1 CAPSULE WEEKLY; Therapy: 24Dec2016 to (Last Rx:59Wei5247) Requested for: 07Jun2017 Ordered Vitamin E 100 UNIT Oral Capsule; Therapy: (Recorded:93Zel9685) to Recorded V-R Vitamin C TABS; Therapy: (Recorded:54Zhl5848) to Recorded Signatures Electronically signed by : SARAI Fuller; Jun 03 2018 8:46AM EST (Co-author) VITAMIN D, 25-HYDROXY Collected: 12/24/2017 Status: F Source: [place] 8:47 AM [facility] REPOSITORY Order Comment: PATIENT FASTING TYPE CODE TESTS RESULT OUT OF REFERENCE UNITS RANGE LAB VTDOH(LOINC ng/mL ) VITAMIN D, 34 25-HYDROXY Result Comment: . DEFICIENCY: < 20 NG/ML INSUFFICIENCY: 20-29 NG/ML OPTIMUM LEVEL: 30-80 NG/ML POSSIBLE TOXICITY: > 80 NG/ML THIS ASSAY ACCURATELY QUANTIFIES THE SUM OF VITAMIN D3, 25-HYDROXY AND VIT D2,25-HYDROXY. Performed By: #### VTDOH #### [facility] [address] [place] [address] TSH Collected: 12/24/2017 Status: F Source: [place] 8:47 AM [facility]IT[facility] Order Comment: PATIENT FASTING TYPE CODE TESTS RESULT OUT OF RANGE REFERENCE UNITS LAB TSH2(LOINC) 0.44 - 3.98 mIU/L TSH 2.96 Result Comment: TSH testing is performed using different testing methodology at [facility] than at other [facility]. Direct result comparisons should only be made within the same method. . Patients receiving more than 5 mg/day of biotin may have interference in test results. A sample should be taken no sooner than eight hours after previous dose. Contact [phone] for additional information. Performed By: #### TSH2 #### [facility] [address] [place] [address] COMPREHENSIVE PANEL Collected: 12/24/2017 Status: F Source: [facility] 8:47 AM [facility] Order Comment: PATIENT FASTING TYPE CODE TESTS RESULT OUT OF REFERENCE UNITS RANGE LAB GLU(LOINC) 74 - 99 mg/dL GLUCOSE 94 LAB SOD(LOINC) 136 - 145 mmol/L SODIUM 143 LAB K(LOINC) 3.5 - 5.3 mmol/L POTASSIUM 4.2 LAB CHLOR(LOIN 98 - 107 mmol/L C) CHLORIDE 105 LAB BIC(LOINC) 21 - 32 mmol/L BICARBONATE 30 LAB ANGAP(LOIN 10 - 20 mmol/L C) ANION GAP 12 LAB UREA(LOINC 6 - 23 mg/dL ) UREA NITROGEN 17 LAB CREA(LOINC 0.50 - 1.05 mg/dL ) CREATININE 0.77 LAB GFRFN(LOIN >60 mL/min/1.7 C) 3m2 GFR-NON AM. >60 LAB GFRAA(LOIN >60 mL/min/1.7 C) 3m2 GFR- AM. >60 Result Comment: CALCULATIONS OF ESTIMATED GFR ARE PERFORMED USING THE MDRD STUDY EQUATION FOR THE IDMS-TRACEABLE CREATININE METHODS. CLIN CHEM 2007;53:766-72 LAB CA(LOINC) 8.6 - 10.6 mg/dL CALCIUM 9.6 LAB ALB(LOINC) 3.4 - 5.0 g/dL ALBUMIN 4.3 LAB AP(LOINC) 33 - 136 U/L ALKALINE PHOSPHATASE 107 LAB TP(LOINC) 6.4 - 8.2 g/dL TOTAL PROTEIN 6.7 LAB AST(LOINC) 9 - 39 U/L AST 23 LAB TBILI(LOINC) 0.0 - 1.2 mg/dL BILIRUBIN,TOTAL 0.5 LAB ALT(LOINC) 7 - 45 U/L ALT 16 Result Comment: Patients treated with Sulfasalazine may generate falsely decreased results for ALT. Performed By: #### CMP #### [facility] [address] [place] [address] LIPID PANEL (CORONARY Collected: 12/24/2017 Status: F Source: [facility] RISK 2) 8:47 AM [facility] REPOSITORY Order Comment: PATIENT FASTING TYPE CODE TESTS RESULT OUT OF REFERENCE UNITS RANGE LAB CHOL(LOINC 0 - 199 mg/dL ) CHOLESTEROL High 211 Result Comment: . AGE DESIRABLE BORDERLINE HIGH HIGH 0-19 Y 0 - 169 170 - 199 >/= 200 20-24 Y 0 - 189 190 - 224 >/= 225 >24 Y 0 - 199 200 - 239 >/= 240 All ranges are based on fasting samples. Specific therapeutic targets will vary based on patient-specific cardiac risk. . Pediatric guidelines reference:Pediatrics 2011, 128(S5). Adult guidelines reference: NCEP ATPIII Guidelines, AMIE 2001, 258:2486-97 . Venipuncture immediately after or during the administration of Metamizole may lead to falsely low results. Testing should be performed immediately prior to Metamizole dosing. LAB HDL(LOINC) mg/dL HDL-CHOLESTEROL 74.4 Result Comment: . AGE VERY LOW LOW NORMAL HIGH 0-19 Y < 35 < 40 40-45 ---- 20-24 Y ---- < 40 >45 ---- >24 Y ---- < 40 40-60 >60 . LAB CHHDL(LOINC) CHOLESTEROL/HDL RATIO 2.8 Result Comment: REF VALUES DESIRABLE < 3.4 HIGH RISK > 5.0 LAB LDLF(LOINC) 0 - 99 mg/dL High LDL 121 Result Comment: . NEAR BORD AGE DESIRABLE OPTIMAL HIGH HIGH VERY HIGH 0-19 Y 0 - 109 --- 110-129 >/= 130 ---- 20-24 Y 0 - 119 --- 120-159 >/= 160 ---- >24 Y 0 - 99 100-129 130-159 160-189 >/=190 . LAB VLDL(LOINC) 0 - 40 mg/dL VLDL 15 LAB TRIG(LOINC) 0 - 149 mg/dL TRIGLYCERIDES 76 Result Comment: . AGE DESIRABLE BORDERLINE HIGH HIGH VERY HIGH 0 D-90 D 19 - 174 ---- ---- ---- 91 D- 9 Y 0 - 74 75 - 99 >/= 100 ---- 10-19 Y 0 - 89 90 - 129 >/= 130 ---- 20-24 Y 0 - 114 115 - 149 >/= 150 ---- >24 Y 0 - 149 150 - 199 200- 499 >/= 500 . Venipuncture immediately after or during the administration of Metamizole may lead to falsely low results. Testing should be performed immediately prior to Metamizole dosing. Performed By: #### LIPID #### [facility] [address] [place] [address] ALLERGIES ALLERGIES No Allergies Records FoundENCOUNTERS ENCOUNTERS ADMIT/DISCHARGE ACCOUNT ADMITTING ENCOUNTER LOCATION SOURCE NUMBER CLASS 11/14/2018 [id number] [facility] ing:OPBI Repository 08/11/2018 [id number] Ambulatory [address] [place] [address] Repository 08/10/2018 [id number] Ambulatory [facility] Repository 05/31/2018 [id number] Ambulatory [address] [place] [address] Repository PAYERS PAYERS ENCOUNTER GUARANTOR PAYER SUBSCRIBER SOURCE 11/14/2018 ZEESHAN A [id number] Primary ZEESHAN A Ermelinda N MAIN Insurance:MEDICARE MILUMDOB: [place], [place] PART A [facility] [id number] [address]Pvr: (330) Number: Repository [phone] HP [id number] Date:2018-09-29 11/14/2018 Secondary ZEESHAN A Ermelinda Insurance:ANTHEMPolic MILUMDOB: [facility] y Number: [id number] [id number] Repository Date:[id number] [place] [address]MX: 11/14/2018 Tertiary NOT [facility] Insurance:SELF PAY [facility] Number: Effective Repository Date:2018-09-29 08/11/2018 ZEESHAN A Primary ZEESHAN A [facility] MILUMDOB: Insurance:AnthemPolic MILUMDOB: [facility] N y Number: [id number] Repository MAIN [facility] [id number] N MAIN [place] [id number]: Date:Plan Name:[facility] [place] [id number]: (HP) (HP) 08/10/2018 ZEESHAN A Primary ZEESHAN A [facility]MedicarePol [facility] N icy Number: [id number] Repository MAIN [place], [id number] N MAIN [place] [id number]: Date:Plan Name:Bethany JI MD A [id number]: (HP) (HP) 08/10/2018 Secondary ZEESHAN A [facility] Insurance:MedicarePol MILUMDOB: Hospitals icy Number: [id number] Repository [id number] N MAIN Date:Plan Name:Bethany JI MD B [id number]: (HP) 08/10/2018 Tertiary ZEESHAN A [facility] y Number: [id number] Repository [id number] N MAIN Date:Plan Name:ED [place] [id number]: (HP) 05/31/2018 ZEESHAN A Primary ZEESHAN A [facility] Insurance:MedicarePol [facility] N icy Number: [id number] Repository MAIN [place], [id number] N MAIN [place] [id number]: Date:Plan Name:Bethany JI MD A [id number]: (HP) (HP) 05/31/2018 Secondary ZEESHAN A [facility] Insurance:MedicarePol MILUMDOB: Hospitals icy Number: [id number] Repository [id number] N MAIN Date:Plan Name:ED Chowdhury B [id number]: ()
== END ==
PROVIDERS: Family Provider Family Medicine; PCP Family Medicine; Referring Provider Obstetrics & Gynecology; Visit Provider Obstetrics & Gynecology
DX: Z12.31 Encounter for screening mammogram for malignant neoplasm of breast (principal)
CPT/HCPCS: 77063; 77067

== ENCOUNTER → 2019-11-16 07:26 | Outpatient (CLI) | payer MEDICARE, BC, SELFPAY ==
--- NOTE | 2019-11-16 07:30 | BI_ITS ---
MAMMOGRAPHY - BILATERAL SCREENING REASON FOR EXAM: Female, 74 years old. Routine annual screening examination. PERTINENT HISTORY: Non-contributory. TECHNIQUE: Digital bilateral breast jaz (3D mammographic acquisition) in the CC and MLO projections. 2-D mediolateral oblique (MLO) and craniocaudad (CC) views of both breasts were obtained. CAD: Full Field Digital Mammography with Computer Added Detection was performed. COMPARISON: Comparison is made with prior study dated November 14, 2018 and October 15, 2017. FINDINGS: Breast Composition: The breasts are heterogeneously dense, which may obscure small masses. There are no dominant masses or suspicious calcifications. No other significant abnormalities are identified. There has been no significant change since the prior study. BI/SCREEN MAMM (CAD) W/JAZ BILAT IMPRESSION: Stable bilateral screening mammogram. Yearly follow-up mammogram recommended. (A) ASSESSMENT CATEGORY: BIRADS Category 1: Negative. A letter regarding these results will be sent to the patient by the facility within 30 days. Approximately 10% of breast cancers are not detected by mammography. A normal mammogram should not delay biopsy of a clinically suspicious abnormality. [id number] Electronically Signed: Pool Chau, at 9:23 EST , Service support ,
== END ==
PROVIDERS: Family Provider Family Medicine; PCP Family Medicine; Referring Provider Obstetrics & Gynecology; Visit Provider Obstetrics & Gynecology
DX: Z12.31 Encounter for screening mammogram for malignant neoplasm of breast (principal)
CPT/HCPCS: 77063; 77067

== ENCOUNTER → 2020-12-13 07:32 | Outpatient (CLI) | payer MEDICARE, BC, SELFPAY ==
--- NOTE | 2020-12-13 07:35 | BI_ITS ---
MAMMOGRAPHY - BILATERAL SCREENING REASON FOR EXAM: Female, 75 years old. Routine annual screening examination. PERTINENT HISTORY: Non-contributory. TECHNIQUE: Digital bilateral breast jaz (3D mammographic acquisition) in the CC and MLO projections. 2-D mediolateral oblique (MLO) and craniocaudad (CC) views of both breasts were obtained. CAD: Full Field Digital Mammography with Computer Added Detection was performed. COMPARISON: Comparison is made with prior study dated 11/16/2019 and 11/14/2018. FINDINGS: Breast Composition: The breasts are heterogeneously dense, which may obscure small masses. There are no dominant masses or suspicious calcifications. No other significant abnormalities are identified. There has been no significant change since the prior study. BI/SCRN MAMM (CAD)W/JAZ BILAT IMPRESSION: Stable bilateral screening mammogram. Yearly follow-up mammogram recommended. (A) ASSESSMENT CATEGORY: BIRADS Category 1: Negative. A letter regarding these results will be sent to the patient by the facility within 30 days. Approximately 10% of breast cancers are not detected by mammography. A normal mammogram should not delay biopsy of a clinically suspicious abnormality. [id number] Electronically Signed: Pool Chau, at 11:17 EST , Service support ,
== END ==
PROVIDERS: PCP Family Medicine; Referring Provider Obstetrics & Gynecology; Visit Provider Obstetrics & Gynecology
DX: Z12.31 Encounter for screening mammogram for malignant neoplasm of breast (principal)
CPT/HCPCS: 77063; 77067

== ENCOUNTER 2021-12-19 08:23 | Outpatient (CLI) | payer MEDICARE, BC, SELFPAY ==
--- NOTE | 2021-12-19 08:27 | BI_ITS ---
MAMMOGRAPHY - BILATERAL SCREENING REASON FOR EXAM: Female, 76 years old. Routine annual screening examination. PERTINENT HISTORY: Non-contributory. TECHNIQUE: Digital bilateral breast jaz (3D mammographic acquisition) in the CC and MLO projections. 2-D mediolateral oblique (MLO) and craniocaudad (CC) views of both breasts were obtained. CAD: Full Field Digital Mammography with Computer Added Detection was performed. COMPARISON: Comparison is made with prior study dated 06/12/2021 and 11/16/2019. FINDINGS: Breast Composition: The breasts are heterogeneously dense, which may obscure small masses. There are no dominant masses or suspicious calcifications. Stable small benign-appearing bilateral axillary nodes. No other significant abnormalities are identified. There has been no significant change since the prior study. BI/SCRN MAMM (CAD)W/JAZ BILAT IMPRESSION: Stable bilateral screening mammogram. Yearly follow-up mammogram recommended. (A) ASSESSMENT CATEGORY: BIRADS Category 2: Benign. A letter regarding these results will be sent to the patient by the facility within 30 days. Approximately 10% of breast cancers are not detected by mammography. A normal mammogram should not delay biopsy of a clinically suspicious abnormality. [id number] Electronically Signed: Pool Chau MD at 9:58 EST , Service support ,
== END 2021-12-19 23:59 | disposition short-term general hospital (02) ==
PROVIDERS: PCP Family Medicine; Referring Provider Family Medicine; Visit Provider Family Medicine
DX: Z12.31 Encounter for screening mammogram for malignant neoplasm of breast (principal)
CPT/HCPCS: 77063; 77067

== ENCOUNTER → 2022-12-28 | Outpatient (CLI) | payer MEDICARE, BC, SELFPAY ==
--- NOTE | 2022-12-28 11:49 | BI_ITS ---
MAMMOGRAPHY - BILATERAL SCREENING REASON FOR EXAM: Female, 77 years old. Routine annual screening examination. PERTINENT HISTORY: Non-contributory. TECHNIQUE: Digital bilateral breast jaz (3D mammographic acquisition) in the CC and MLO projections. 2-D mediolateral oblique (MLO) and craniocaudad (CC) views of both breasts were obtained. CAD: Full Field Digital Mammography with Computer Added Detection was performed. COMPARISON: Comparison is made with prior study dated 06/18/2022 and 12/13/2020. FINDINGS: Breast Composition: The breasts are heterogeneously dense, which may obscure small masses. There are no dominant masses or suspicious calcifications. No other significant abnormalities are identified. There has been no significant change since the prior study. BI/SCRN MAMM (CAD)W/JAZ BILAT IMPRESSION: Stable bilateral screening mammogram. Yearly follow-up mammogram recommended. (A) ASSESSMENT CATEGORY: BIRADS Category 1: Negative. A letter regarding these results will be sent to the patient by the facility within 30 days. Approximately 10% of breast cancers are not detected by mammography. A normal mammogram should not delay biopsy of a clinically suspicious abnormality. [id number] Electronically Signed: Pool Chau MD at 12:49 EST ,
== END | disposition home or self-care (01) ==
LOC: OPBI 11:45
PROVIDERS: PCP Family Medicine; Visit Provider Family Medicine
DX: Z12.31 Encounter for screening mammogram for malignant neoplasm of breast (principal)
CPT/HCPCS: 77063; 77067

== ENCOUNTER → 2023-12-30 | Outpatient (CLI) | payer MEDICARE, BC, SELFPAY ==
--- NOTE | 2023-12-30 07:07 | BI_ITS ---
MAMMOGRAPHY - BILATERAL SCREENING REASON FOR EXAM: Female, 78 years old. Routine annual screening examination. PERTINENT HISTORY: Non-contributory. TECHNIQUE: Digital bilateral breast jaz (3D mammographic acquisition) in the CC and MLO projections. 2-D mediolateral oblique (MLO) and craniocaudad (CC) views of both breasts were obtained. CAD: Full Field Digital Mammography with Computer Added Detection was performed. COMPARISON: Comparison is made with prior study dated December 28, 2022 and December 19, 2021. FINDINGS: Breast Composition: The breasts are heterogeneously dense, which may obscure small masses. There are no dominant masses or suspicious calcifications. No other significant abnormalities are identified. There has been no significant change since the prior study. BI/SCRN MAMM (CAD)W/JAZ BILAT IMPRESSION: Stable bilateral screening mammogram. Yearly follow-up mammogram recommended. (A) ASSESSMENT CATEGORY: BIRADS Category 1: Negative. A letter regarding these results will be sent to the patient by the facility within 30 days. Approximately 10% of breast cancers are not detected by mammography. A normal mammogram should not delay biopsy of a clinically suspicious abnormality. [id number] Electronically Signed: Pool Chau MD at 10:29 EST ,
--- OUTSIDE RECORDS SUMMARY | 2023-12-30 07:09 | XMS RPT_ITS | CCD ---
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 Carlos Yip Attending Dota shadi Yip, Dr. Carlos Lala Primary Care Unavaila shadi Yip, Dr. Carlos Lala Referring Unavaila shadi Yip, Dr. Carlos Lala Attending Dota shadi Yip, Dr. Carlos Lala Primary Care Unavaila shadi Yip, Dr. Carlos Lala Referring Unavaila shadi Yip, Dr. Carlos Lala Attending Unavaila shadi Yip, Dr. Carlos Lala Primary Care Unavaila shadi Yip, Dr. Carlos Lala Referring Dtoa CARLOS Peña Primary Care Unavailable CARLOS YIP Attending Unavailable CARLOS YIP Primary Care Unavailable CARLOS YIP Attending Unavailable CARLOS YIP Referring Unavailable CARLOS YIP Primary Care Unavailable Medications Current Medications Medication Drug Class(es) Dates Sig (Normalized) Sig (Original) amLODIPine 10 mg oral tablet (17 sources) Dihydropyridine Calcium Channel Nikolai Start: 11-26-2021 take 1 tablet by mouth at bedtime amLODIPine Besylate 5 MG Oral Tablet TAKE 1 TABLET AT BEDTIME Quantity: 90 Refills: 3 Ordered: 26-Nov-2021 Carlos Yip MD Start : 26-Nov-2021 Active new dose Completed/Discontinued Medications Medication Drug Class(es) Dates Sig (Normalized) Sig (Original) Calcium Carbonate (6 sources) Os-Artem TABS Adriel tity: 0 Refills: 0 Ordered: 11-Sep-2016 DO Active Problems Active Problems Problem Classification Problem Date Documented Da te Episodic/Chronic Anxiety disorders (4 sources) Anxiety; Translations: [Anxiety disorder, unspecified] Onset: 12-07-2023 12-07-2023 Chronic Cardiac dysrhythmias (4 sources) Sinus bradycardia; Translations: [Sinus bradycardia] Chronic Conditions associated with dizziness or vertigo (15 sources) Dizziness; Translations: [Dizziness and giddiness] Episodic Diabetes mellitus without complication (4 sources) Hyperglycemia; Translations: [Impaired fasting glucose] Onset: 12-07-2023 12-07-2023 Episodic Disorders of lipid metabolism (20 sources) Hyperlipidemia; Translations: [Other and unspecified hyperlipidemia] Onset: 06-01-2023 06-02-2023 Chronic Essential hypertension (20 sources) Benign essential hypertension; Translations: [Benign essential hypertension] Onset: 06-01-2023 06-02-2023 Chronic Past or Other Problems Problem Classification Problem Date Documented Da te Episodic/Chronic Allergic reactions (5 sources) Irritant contact dermatitis; Translations: [Irritant contact dermatitis, unspecified cause] Onset: 06-02-2023 06-02-2023 Episodic Cardiac dysrhythmias (13 sources) Sinus bradycardia; Translations: [Other specified cardiac dysrhythmias] Onset: 06-02-2023 06-02-2023 Episodic Genitourinary congenital anomalies (16 sources) H/O: urinary anomaly; Translations: [Personal history of other specified urinary system disorders] Resolved: 11-03-2017 Episodic Mood disorders (2 sources) Mood disorders Onset: 05-22-2022 01-10-2023 Mycoses (20 sources) Onychomycosis; Translations: [Dermatophytosis of nail] Onset: 06-01-2023 06-02-2023 Episodic Other bone disease and musculoskeletal deformities (20 sources) Osteopenia; Translations: [Disorder of bone and cartilage, unspecified] Onset: 11-30-2018 09-12-2022 Episodic Results Test Name Value Interpretation Reference Range Facil ity Vital Signs Date Time Vital Sign Value Performing Clinician Facility 12-07-2023 09:09-0500 Diastolic blood pressure 90 mm[Hg] Carlos Yip MD Work Phone: [facility] 12-07-2023 09:09-0500 Systolic blood pressure 160 mm[Hg] Carlos Yip MD Work Phone: [facility] 12-07-2023 08:34-0500 Body mass index (BMI) [Ratio] 26.1 kg/m2 Carlos Yip MD Work Phone: [facility] 12-07-2023 08:34-0500 Body temperature 97.59 [degF] Carlos Yip MD Work Phone: [facility] 12-07-2023 08:34-0500 Body weight 59.6 kg Carlos Yip MD Work Phone: [facility] 12-07-2023 08:34-0500 Heart rate 56 /min Carlos Yip MD Work Phone: [facility] 12-07-2023 08:34-0500 SaO2% (BldA) [Mass fraction] 95 % Carlos Yip MD Work Phone: [facility] 06-02-2023 09:13-0400 Diastolic blood pressure 80 mm[Hg] Carlos Yip MD Work Phone: [facility] 06-02-2023 09:13-0400 Systolic blood pressure 140 mm[Hg] Carlos Yip MD Work Phone: [facility] 06-02-2023 08:28-0400 Body height 151.1 cm Carlos Yip MD Work Phone: [facility] 06-02-2023 08:28-0400 Body mass index (BMI) [Ratio] 25.94 kg/m2 Carlos Yip MD Work Phone: [facility] 06-02-2023 08:28-0400 Body temperature 97.59 [degF] Carlos Yip MD Work Phone: [facility] 06-02-2023 08:28-0400 Body weight 59.24 kg Carlos Yip MD Work Phone: [facility] 06-02-2023 08:28-0400 Heart rate 56 /min Carlos Yip MD Work Phone: [facility] 06-02-2023 08:28-0400 Respiratory rate 12 /min Carlos Yip MD Work Phone: [facility] 06-02-2023 08:28-0400 SaO2% (BldA) [Mass fraction] 95 % Carlos iYp MD Work Phone: [facility] 03-15-2023 09:11-0400 Body height 154.9 cm Eduar Mcintyre MD Work Phone: [facility] 03-15-2023 09:11-0400 Body mass index (BMI) [Ratio] 25.7 kg/m2 Eduar Mcintyre MD Work Phone: [facility] 03-15-2023 09:11-0400 Body weight 61.69 kg Eduar Mcintyre MD Work Phone: [facility] 03-15-2023 09:11-0400 Diastolic blood pressure 70 mm[Hg] Eduar Mcintyre MD Work Phone: [facility] 03-15-2023 09:11-0400 Systolic blood pressure 115 mm[Hg] Eduar Mcintyre MD Work Phone: [facility] 11-27-2022 09:26-0500 Diastolic blood pressure 70 mm[Hg] Carlos Yip Work Phone: [facility] Work Phone: 11-27-2022 09:26-0500 Systolic blood pressure 140 mm[Hg] Carlos D Hoynes Work Phone: [facility] Work Phone: 11-27-2022 08:52-0500 Body height 154.31 cm Carlos D Hoynes Work Phone: [facility] Work Phone: 11-27-2022 08:52-0500 Body mass index (BMI) [Ratio] 25.55 kg/m2 Carlos D Dayoynes Work Phone: [facility] Work Phone: 11-27-2022 08:52-0500 Body surface area Derived from formula 1.59 m2 Carlos D Dayoynes Work Phone: [facility] Work Phone: 11-27-2022 08:52-0500 Body temperature 97.8 [degF] Carlos Noemy Osheaynes Work Phone: [facility] Work Phone: 11-27-2022 08:52-0500 Body weight 60.84 kg Carlos D Dayoynes Work Phone: [facility] Work Phone: 11-27-2022 08:52-0500 Diastolic blood pressure 75 mm[Hg] Carlos D Dayoynes Work Phone: [facility] Work Phone: 11-27-2022 08:52-0500 Heart rate 60 /min Carlos D Hoynes Work Phone: [facility] Work Phone: 11-27-2022 08:52-0500 SaO2% (BldA) [Mass fraction] 98 % Carlos D Hoynes Work Phone: [facility] Work Phone: 11-27-2022 08:52-0500 Systolic blood pressure 156 mm[Hg] Carlos D Hoynes Work Phone: [facility] Work Phone: 10-20-2022 10:29-0500 Body mass index (BMI) [Ratio] 27.05 kg/m2 Carlos D Hoynes Work Phone: [facility] Work Phone: 10-20-2022 10:29-0500 Body surface area Derived from formula 1.63 m2 Carlos D Hoynes Work Phone: [facility] Work Phone: 10-20-2022 10:29-0500 Body temperature 99 [degF] Carlos D Hoynes Work Phone: [facility] Work Phone: 10-20-2022 10:29-0500 Body weight 64.41 kg Carlos D Hoynes Work Phone: [facility] Work Phone: 10-20-2022 10:29-0500 Diastolic blood pressure 95 mm[Hg] Carlos D Hoynes Work Phone: [facility] Work Phone: 10-20-2022 10:29-0500 Heart rate 70 /min Carlos D Hoynes Work Phone: [facility] Work Phone: 10-20-2022 10:29-0500 SaO2% (BldA) [Mass fraction] 96 % Carlos D Hoynes Work Phone: [facility] Work Phone: 10-20-2022 10:29-0500 Systolic blood pressure 150 mm[Hg] Carlos D Hoynes Work Phone: [facility] Work Phone: 05-22-2022 08:54-0400 Diastolic blood pressure 80 mm[Hg] Carlos D Hoynes Work Phone: [facility] Work Phone: 05-22-2022 08:54-0400 Systolic blood pressure 170 mm[Hg] Carlos D Hoynes Work Phone: [facility] Work Phone: 05-22-2022 08:21-0400 Body mass index (BMI) [Ratio] 27.13 kg/m2 Carlos D Hoynes Work Phone: [facility] Work Phone: 05-22-2022 08:21-0400 Body surface area Derived from formula 1.63 m2 Carlos D Hoynes Work Phone: [facility] Work Phone: 05-22-2022 08:21-0400 Body temperature 97.7 [degF] Carlos D Hoynes Work Phone: [facility] Work Phone: 05-22-2022 08:21-0400 Body weight 64.58 kg Carlos D Hoynes Work Phone: [facility] Work Phone: 05-22-2022 08:21-0400 Diastolic blood pressure 72 mm[Hg] Carlos D Hoynes Work Phone: [facility] Work Phone: 05-22-2022 08:21-0400 Heart rate 52 /min Carlos D Hoynes Work Phone: [facility] Work Phone: 05-22-2022 08:21-0400 Respiratory rate 16 /min Carlos D Hoynes Work Phone: [facility] Work Phone: 05-22-2022 08:21-0400 SaO2% (BldA) [Mass fraction] 95 % Carlos D Hoynes Work Phone: [facility] Work Phone: 05-22-2022 08:21-0400 Systolic blood pressure 172 mm[Hg] Carlos Yip Work Phone: [facility] Work Phone: 05-22-2022 08:21-0400 2 1 Carlos Yip Work Phone: [facility] Work Phone: Encounters Encounter Date Encounter Type Care Provider Facility Start: 12-07-2023 End: 12-07-2023 ambulatory CARLOSHoma YIP [facility] Start: 12-07-2023 End: 12-07-2023 Office outpatient visit 25 minutes Carlos Yip MD Work Phone: [facility] Procedures Date Procedure Procedure Detail Performing Clinician Start: 12-07-2023 FOLLOW UP IN [facility] - PCP CARLOS YIP Start: 12-07-2023 Lipid 1996 panel - S vale or Plasma Carlos Yip MD Work Phone: Start: 12-07-2023 Thyrotropin [Units/v olume] in Serum or Plasma Carlos Yip MD Work Phone: Start: 06-02-2023 CBC W Auto Different ial panel - Blood CARLOS YIP Start: 06-02-2023 Comprehensive metabo lic 2000 panel - Serum or Plasma CARLOS YIP Start: 06-02-2023 HEPATITIS C ANTIBODY SE RADHA YIP Start: 06-02-2023 Lipid panel CARLOS Borrego Start: 06-02-2023 TSH WITH REFLEX TO F REE T4 IF ABNORMAL CARLOS YIP Start: 06-02-2023 VITAMIN D 25-HYDROXY,TOTAL CARLOS YIP Start: 11-27-2022 Lipid 1996 panel - S vale or Plasma Eduar Mcintyre MD Work Phone: Start: 05-22-2022 Thyrotropin [Units/v olume] in Serum or Plasma Carlos Yip MD Work Phone: Start: 05-13-2020 25 hydroxy includes fractions if performed Carlos Yip Start: 05-13-2020 Assay of free thyroxine Carlos Fiordalizaelmo Start: 05-13-2020 Assay of thyroid stimulating hormone tsh Carlos Annia Start: 05-13-2020 Comprehensive metabo lic 2000 panel Carlos Yip Start: 05-13-2020 Lipid panel Carlos Mancera s Start: 05-13-2020 Thyrotropin [Units/v olume] in Serum or Plasma Eduar Mcintyre MD Work Phone: Start: 03-25-2020 25 hydroxy includes fractions if performed Carlos Manceraelmo Start: 03-25-2020 Assay of free thyroxine Carlos Fiordalizaelmo Start: 03-25-2020 Assay of thyroid stimulating hormone tsh Carlos Annia Start: 03-25-2020 Comprehensive metabo lic 2000 panel Carlos Yip Start: 03-25-2020 Lipid panel Carlos borrego History of Dilation And Curettage Carlos Dayoalondra Plan of Treatment Date Care Activity Detail Author Start: 12-07-[address]28 [address] [facility] Start: 11-27-2027 Lipid panel Lipid Panel [facility] Start: 12-07-2024 Diabetes mellitus screening Diabetes Screening [facility] Start: 12-07-2024 Hemoglobin A1c measurement Diabetes: Hemoglobin A1C [facility] Start: 12-07-2024 Thyroid stimulating hormone measurement TSH Level [facility] Start: 06-12-2024 End: 06-12-2024 Patient encounter procedure 06/12/2024 7:30 AM EDT Office Visit [facility] [address] [place] [phone] Carlos Yip MD [address] [place] [id number] [facility] Start: 06-03-2024 Medicare Annual Well ness Visit Medicare Annual Wellness Visit (AWV) [facility] Start: 03-20-2024 End: 03-20-2024 Patient encounter procedure 03/20/2024 Office Visit Obstetrics and Gynecology Eduar Mcintyre MD [address] [place] [address] [facility] Start: 07-30-2023 Influenza vaccination [facility] Start: 06-02-2023 End: 06-02-2024 25-hydroxyvitamin D3 [Mass/volume] in Serum or Plasma Vitamin D, Total Lab Routine Vitamin D deficiency Expected: 06/02/2023 (Approximate), Expires: 06/02/2024 [facility] Service Area Work Phone: Immunizations Immunization Date Immunization Notes Care Provider Fa cility 11-26-2021 Fluzone High-Dose Quadrivalent 0.7 ML Intramuscular Suspension Prefilled Syringe; Translations: [Fluzone High-Dose Quadrivalent 0.7 ML Intramuscular Suspension Prefilled Syringe] Carlos Yip Work Phone: [facility] Work Phone: Payers Date Payer Category Payer Medicare [id number] 2010 Medicare [id number] 2004 Unknown 2004 Unknown [id number] 1945 Unknown [id number] [id number]. [id number] 1945 Unknown [id number] [id number]. [id number] 1945 Unknown [id number] [id number]. [id number] 1945 Unknown [id number] 1945 Unknown [id number] 1945 Unknown [id number] Social History Date Type Detail Facility Start: 06-02-2023 End: 12-07-[address] [facility] Start: 06-01-2023 Tobacco smoking status NHIS Never smoked tobacco [facility] Start: 03-15-2023 Alcohol intake Current non-dr network systems analyst of alcohol (finding) [facility] Start: 1945 Sex Assigned At Not on file [facility] Start: 03-05-2023 End: 12-07-2023 Exposure to SARS-CoV-2 (event) Not sure [facility] Start: 06-01-2023 Tobacco use and exposure Smokeless tobacco non-user [facility] Work Phone: Start: 06-02-2023 End: 12-07-[address] [facility] NEGATED: Highlighted row - - [facility] Work Phone: Functional Status Date Assessment Result Facility 05-22-2022 PHQ-9 [id number] In Re mission (0-4) [facility] Work Phone: 11-26-2021 PHQ-9 Adult Depressi on Score PHQ-9 Adult Depression Score 3 [facility] Work Phone: Mental Status Date Assessment Result Facility NEGATED: Highlighted row Cognitive function [Interpretation] Cognitive status health issues are not documented Disease [facility] Work Phone: Clinical Notes 03-15-2023 to 12-07-2023 Carlos Yip MD - 12/07/2023 8:30 AM ESTPatient InstructionsCarlos Yip MD - 06/02/2023 8:30 AM EDTPatient Martell Mcintyre MD - 03/15/2023 9:15 AM EDT Note Date & Type Note Facility 12-07-2023 History of Present illness Narrative Subjective Patient ID: Zeeshan Isidro is a 78 y.o. female who presents for Follow-up (6 mo fuv bp, thy, no complaints,discuss amlopdipine, unsure of flu shot). HPI The patient mentions that the blood pressure medication makes her irritable. The medication makes her feel more worried especially about the irritability. She last took the medication a while ago. The patient talks to someone when she is worried but she feels embarrassed because she wants to put her jorge l in god. She never talked to a therapist. She finds it hard to relax so that she can fall asleep and stay asleep. Due to being off this medication and anxiety, her blood pressure in office today is 180/80. Despite the high blood pressure, she is asymptomatic. Review of Systems Constitutional: Negative. HENT: Negative. Eyes: Negative. Respiratory: Negative. Cardiovascular: Negative. Gastrointestinal: Negative. Endocrine: Negative. Genitourinary: Negative. Musculoskeletal: Negative. Skin: Negative. Allergic/Immunologic: Negative. Neurological: Negative. Hematological: Negative. Psychiatric/Behavioral: Positive for agitation. The patient is nervous/anxious. Objective BP 160/90 Pulse 56 Temp 36.4 C (97.6 F) (Temporal) Wt 59.6 kg (131 lb 6.4 oz) LMP (LMP Unknown) SpO2 95% BMI 26.10 kg/m Physical Exam Constitutional: Appearance: Normal appearance. HENT: Head: Normocephalic and atraumatic. Nose: Nose normal. Eyes: Extraocular Movements: Extraocular movements intact. Conjunctiva/sclera: Conjunctivae normal. Pupils: Pupils are equal, round, and reactive to light. Cardiovascular: Rate and Rhythm: Normal rate and regular rhythm. Pulses: Normal pulses. Heart sounds: Normal heart sounds. Pulmonary: Effort: Pulmonary effort is normal. Breath sounds: Normal breath sounds. Abdominal: General: Bowel sounds are normal. Palpations: Abdomen is soft. Genitourinary: General: Normal vulva. Rectum: Normal. Musculoskeletal: General: Normal range of motion. Cervical back: Normal range of motion and neck supple. Skin: General: Skin is warm. Neurological: Mental Status: She is alert and oriented to person, place, and time. Psychiatric: Mood and Affect: Mood normal. Behavior: Behavior normal. Thought Content: Thought content normal. Judgment: Judgment normal. Assessment/Plan 1. Benign essential hypertension Follow Up In [facility] - PCP amLODIPine (Norvasc) 10 mg tablet 2. Mixed hyperlipidemia CBC and Auto Differential Comprehensive metabolic panel Lipid panel 3. Acquired hypothyroidism TSH with reflex to Free T4 if abnormal 4. Paresthesia Vitamin B12 5. Fatigue, unspecified type Vitamin D 25-Hydroxy,Total (for eval of Vitamin D levels) TSH with reflex to Free T4 if abnormal Hemoglobin A1c 6. Encounter for follow-up 7. Anxiety mirtazapine (Remeron) 7.5 mg tablet CANCELED: Follow Up In [facility] - [facility] 8. Vitamin D deficiency Vitamin D 25-Hydroxy,Total (for eval of Vitamin D levels) 9. Elevated fasting blood sugar Hemoglobin A1c 10. Medicare annual wellness visit, subsequent Follow Up In [facility] - PCP - Medicare Annual 1. Hypertension Today in the office the blood pressure is elevated. You have not been taking the blood pressure medication amlodipine due to your concerns about side effects. I am recommending you restart the amlodipine 10 mg once a day every day. This medication should help lower your blood pressure which should reduce your risk for heart attack or stroke. It should not cause symptoms of anxiety or depression. If possible once you start back on the medicine check blood pressures at home. The goal for the top number should be 140 or below the bottom number should be 80 or below 2. Anxiety. I am concerned that you are worrying about too many things and this is reducing the quality of your life it is not allowing you to enjoy your life. I am recommending that you start on a very low-dose of a medication mirtazapine 7.5 mg 1 pill at bedtime you could even cut this pill in half if you would like to take even a lower dose again 1/2 pill at bedtime this medicine should help not only you sleep better but also carry over during the day to you where you are less anxious and you do not worry about so much. Continue going to bahai and continue to pray. Continue getting outside or being a window for 30 minutes of natural sunlight every day and continue with a healthy relationship with your family and friends 3. Hypothyroid Continue on your thyroid medicine with your labs we will check a thyroid function we will adjust medicines if needed 4. Elevated cholesterol. Continue eating a heart healthy diet a good goal 5-7 servings of fresh fruit and vegetable every day in addition to lean protein avoiding simple sugars and fast foods with today's labs we will check kidney function liver function blood sugar and cholesterol call you with those results 5. I will see you back in 6 months I am happy to see you sooner if needed Follow-up in 6 months or sooner if there are any concerns. Scribe Attestation By signing my name below, I, Johanny PerezSarai attest that this documentation has been prepared under the direction and in the presence of Carlos Yip MD on 12/07/2022 at 8:55am EST. documented in this encounter [facility] Work Phone: 12-07-2023 Instructions Carlos Yip MD - 12/07/2023 8:30 AM EST 1. Hypertension Today in the office the blood pressure is elevated. You have not been taking the blood pressure medication amlodipine due to your concerns about side effects. I am recommending you restart the amlodipine 10 mg once a day every day. This medication should help lower your blood pressure which should reduce your risk for heart attack or stroke. It should not cause symptoms of anxiety or depression. If possible once you start back on the medicine check blood pressures at home. The goal for the top number should be 140 or below the bottom number should be 80 or below 2. Anxiety. I am concerned that you are worrying about too many things and this is reducing the quality of your life it is not allowing you to enjoy your life. I am recommending that you start on a very low-dose of a medication mirtazapine 7.5 mg 1 pill at bedtime you could even cut this pill in half if you would like to take even a lower dose again 1/2 pill at bedtime this medicine should help not only you sleep better but also carry over during the day to you where you are less anxious and you do not worry about so much. Continue going to bahai and continue to pray. Continue getting outside or being a window for 30 minutes of natural sunlight every day and continue with a healthy relationship with your family and friends 3. Hypothyroid Continue on your thyroid medicine with your labs we will check a thyroid function we will adjust medicines if needed 4. Elevated cholesterol. Continue eating a heart healthy diet a good goal 5-7 servings of fresh fruit and vegetable every day in addition to lean protein avoiding simple sugars and fast foods with today's labs we will check kidney function liver function blood sugar and cholesterol call you with those results 5. I will see you back in 6 months I am happy to see you sooner if needed documented in this encounter [facility] Work Phone: 06-02-2023 History of Present illness Narrative Subjective Reason for Visit: Zeeshan Isidro is an 78 y.o. female here for a Medicare Wellness visit. Past Medical, Surgical, and Family History reviewed and updated in chart. Reviewed all medications by prescribing practitioner or clinical pharmacist (such as prescriptions, OTCs, herbal therapies and supplements) and documented in the medical record. HPI She is here for a follow up She has concerns that she is itching She is having worried a lot and she thinks she is over worrying She is worried that the amlodipine could be causing her mood to be worse or that she has side effects. She is not taking the amlodipine every day, she did take it last night, She is reporting she feels upset if she takes this every night She has not taken any biotin in the past 3 days Patient Care Team: Carlos Yip MD as PCP - General Carlos Yip MD as PCP - [facility] Attributed Provider Review of Systems Skin: Thick toenails Itching skin Psychiatric/Behavioral: Positive for dysphoric mood. All other systems reviewed and are negative. Objective Vitals: BP 140/80 Pulse 56 Temp 36.4 C (97.6 F) (Temporal) Resp 12 Ht 1.511 m (4' 11.5 ) Wt 59.2 kg (130 lb 9.6 oz) LMP (LMP Unknown) SpO2 95% BMI 25.94 kg/m Physical Exam Assessment/Plan Problem List Items Addressed This Visit Benign essential hypertension - Primary Overview Comment on above: Added by Problem List Migration; 2013-11-01; Relevant Orders CBC and Auto Differential Follow Up In [facility] - PCP Hyperlipidemia Relevant Orders Lipid Panel Comprehensive Metabolic Panel Hypothyroidism Relevant Orders TSH with reflex to Free T4 if abnormal Onychomycosis Relevant Medications ciclopirox (Penlac) 8 % solution Osteopenia Overview DXA 2015: T score -1.8__2009: T score -1.5 DXA 2016: T score -1.8__2009: T score -1.5 DXA 2016: T score -1.8__2009: T score -1.5 Vitamin D deficiency Relevant Orders Vitamin D, Total Other Visit Diagnoses Routine general medical examination at health care facility Relevant Orders Hepatitis C antibody Breast cancer screening by mammogram Relevant Orders BI mammo bilateral screening tomosynthesis Irritant contact dermatitis, unspecified trigger Relevant Medications triamcinolone (Kenalog) 0.1 % cream #1 hypertension We had a good discussion in regards to your medications. I would like you to take amlodipine 10 mg every night. Please contact my office once you get home to tell us what medication you have at home. You may need a refill of this medication. By lowering your blood pressure we are preventing a stroke and we are preventing heart attack 2. Hypothyroid. Please stay on your current thyroid medications. We will check blood work to make sure you are taking the correct dose 3. Itching of the skin. 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 Please take or use the triamcinolone cream that I have sent to the pharmacy that can be used on your hands or arms to help reduce itching 4. Abnormal mood. You report that your moods will sometimes be bothersome to you and you ask if it is possible the medications you are taking could be contributing or causing this. I do not think your thyroid medicine and I do not think that amlodipine would be causing this. I would asked that you keep a journal try to write down how you are feeling and what time of day to help us determine if it could be correlated with the medicine 5. For the Medicare wellness you are up-to-date with your pneumonia vaccines please consider getting a shingles vaccine at the pharmacy we will have an order for mammogram for breast cancer screening you are up-to-date with your colon cancer screening with the stool test and you are up-to-date with your bone density test If your labs returned normal and you remain healthy I would like to see you back in 6 months but am happy to see you sooner if needed documented in this encounter [facility] Work Phone: 06-02-2023 Instructions Carlos Yip MD - 06/02/2023 8:30 AM EDT #1 hypertension We had a good discussion in regards to your medications. I would like you to take amlodipine 10 mg every night. Please contact my office once you get home to tell us what medication you have at home. You may need a refill of this medication. By lowering your blood pressure we are preventing a stroke and we are preventing heart attack 2. Hypothyroid. Please stay on your current thyroid medications. We will check blood work to make sure you are taking the correct dose 3. Itching of the skin. 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 Please take or use the triamcinolone cream that I have sent to the pharmacy that can be used on your hands or arms to help reduce itching 4. Abnormal mood. You report that your moods will sometimes be bothersome to you and you ask if it is possible the medications you are taking could be contributing or causing this. I do not think your thyroid medicine and I do not think that amlodipine would be causing this. I would asked that you keep a journal try to write down how you are feeling and what time of day to help us determine if it could be correlated with the medicine 5. For the Medicare wellness you are up-to-date with your pneumonia vaccines please consider getting a shingles vaccine at the pharmacy we will have an order for mammogram for breast cancer screening you are up-to-date with your colon cancer screening with the stool test and you are up-to-date with your bone density test If your labs returned normal and you remain healthy I would like to see you back in 6 months but am happy to see you sooner if needed documented in this encounter [facility] Work Phone: 03-15-2023 History of Present illness Narrative Zeeshan Isidro 03/15/2023 78 y.o. Primary Care Physician: [facility] (Inactive) Chief Complaint Patient presents with Annual Exam HPI : Zeeshan Isidro is a 78 y.o. female here for annual exam ___ Gynecologic History: No LMP recorded. Patient is postmenopausal. Pt without complaints. No bleeding or cramping. No pelvic pain. No vaginal discharge. OB History Para Term AB Living 1 1 1 0 0 1 SAB IAB Ectopic Multiple Live Births 0 0 0 0 1 # Outcome Date GA Lbr Charan/2nd Weight Sex Delivery Anes PTL Lv 1 Term M Vag-Spont EDMAR Past Medical History: Diagnosis Date Anxiety Kelly's palsy Hypertension Hypothyroid Myalgia Osteoarthritis Osteopenia DXA 2015: T score -1.8__2008: T score -1.5 Psoriasis Shingles 2018 Past Surgical History: Procedure Laterality Date COLONOSCOPY 2010 cologaurd 2019 DILATION AND CURETTAGE OF UTERUS Family History Problem Relation Name Age of Onset Diabetes Father No Known Problems Paternal Grandfather No Known Problems Brother No Known Problems Brother No Known Problems Maternal Grandmother No Known Problems Son No Known Problems Maternal Grandfather Thyroid disease Mother No Known Problems Paternal Grandmother Parkinsonism Mother Social History Socioeconomic History Marital status: Spouse name: Not on file Number of children: Not on file Years of education: Not on file Highest education level: Not on file Occupational History Not on file Tobacco Use Smoking status: Never Smokeless tobacco: Never Substance and Sexual Activity Alcohol use: No Drug use: No Sexual activity: Not Currently Other Topics Concern Not on file Social History Narrative Social Determinants of Health Financial Resource Strain: Not on file Food Insecurity: Not on file Transportation Needs: Not on file Physical Activity: Not on file Stress: Not on file Social Connections: Not on file Intimate Partner Violence: Not on file Housing Stability: Not on file MEDICATIONS: Current Outpatient Medications Medication Sig Dispense Refill levothyroxine (Synthroid, Levoxyl) 75 MCG tablet take 1 tablet by mouth once daily 6 DAYS PER WEEK No current facility-administered medications for this visit. ALLERGIES: Allergies as of 03/15/2023 (No Known Allergies) REVIEW OF SYSTEMS: CONSTIUTIONAL: No fever, chills or malaise; No weight change or fatigue CV: No Chest Pain with Exertion, Palpitations, Syncope, Edema, Arrhythmia RESPIRATORY: No SOB, Pneumoniae,Cough, BREAST: No breast abnormalities or lumps GI: No Indigestion, Heartburn, Nausea, vomiting, Diarrhea, Constipation,Bloating or Bowel Changes; No Bloody Stools or melena : No Dysuria, Hematuria or Nocturia. No Urinary Incontinence or Vaginal Discharge,vaginal bleeding, or dysparuenia. Pos frequency. NEURO: No CVA, Migraines, Epilepsy, Seizure Hx, or Limb Weakness DERM: No Rash, Itching, Hives, Mole Changes or Cancer PSYCH: No Depression, Homicidal thoughts,suicidal thoughts, or anxiety MUSCULOSKELETAL: No Arthralgia, or Arthritis HEME and LYMPH :No Lymphoma, Von Willebrand's, Hemophillia or Bleeding History PHYSICAL EXAM: Vitals: 03/15/23 0911 BP: 115/70 Weight: 136 lb (61.7 kg) Height: 5' 1 (1.549 m) Body mass index is 25.7 kg/m . 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 ANUS/PERINEUM: no hemorrhoids, masses or warts noted. No adnexal masses or tenderness GENERAL EXAM BREAST: b/l symmetric without masses or tenderness CONSTITUTIONAL: Well developed, well nourished, well groomed. no acute distress NECK: no thyromegaly, supple. CARDIOVASCULAR: normal rate and rhythm, no edema LUNGS: Normal effort, normal lung sounds ABDOMEN:soft, non-tender, non-distended, no hepatospleenomegaly SKIN: intact, dry NEUROLOGICAL: no gross motor or sensory deficits noted. . MUSCULOSKELETAL: normal gait, no cyanosis. PSYCHIATRIC Normal mood and affect, A&O x3. ASSESSMENT/PLAN: Zeeshan was seen today for annual exam. Diagnoses and all orders for this visit: Encounter for gynecological examination without abnormal finding (Primary) Menopause - DEXA bone density peripheral; Future Follow up in about 1 year (around 03/15/2024). Just had mammogram UTD on colon screening Normal bimanual Pap not indicated documented [facility] encounter [facility] Benign essential hypertension- Primary Essential hypertension, benign Routine general medical examination at health care facility Routine general medical examination at a health care facility Mixed hyperlipidemia Acquired hypothyroidism Unspecified hypothyroidism Vitamin D deficiency Osteopenia, unspecified location Hypothyroidism, unspecified type Breast cancer screening by mammogram Irritant contact dermatitis, unspecified trigger Onychomycosis Dermatophytosis of nail documented in this encounter [facility] Work Phone: Evaluation note* Diagnosis Benign essential hypertension- Primary Essential hypertension, benign Mixed hyperlipidemia Acquired hypothyroidism Unspecified hypothyroidism Paresthesia Disturbance of skin sensation Fatigue, unspecified type Encounter for follow-up Anxiety Anxiety state, unspecified Vitamin D deficiency Elevated fasting blood sugar Impaired fasting glucose Medicare annual wellness visit, subsequent documented in this encounter [facility] Work Phone: History of Present illness Narrative* The patient is being seen for the subsequent annual wellness visit. * Past Medical, Surgical and Family History: reviewed and updated in chart. * Medications and Supplements: Medications and supplements, including calcium and vitamins reviewed and updated in chart. * No, the patient is not using opioids. * Patient Self Assessment of Health Status: good. * Tobacco use: Non-User * Alcohol use: Non-User * Illicit drug use: Non-User * Current diet: Heart Healthy Diet, does consume adequate fluids and does not consume caffeine. * Exercise Frequency: regularly. * Depression/Suicide Screening: . * During the past 2 weeks, the patient has not felt down, depressed or hopeless. * During the past 2 weeks, the patient has not felt little interest or pleasure in doing things. * Hearing Impairment: none. * Bathing: performs independently. * Dressing: performs independently. * Walking: performs independently. * Managing Finances: performs independently. * Shopping: performs independently. * Managing Medications: performs independently. * Housework / Basic Home Maintenance: performs independently. * Falls Risk Screening:. ZEESHAN has not fallen in the last 6 months. * Home safety risk factors: no grab bars in the bathroom. * She would like to discuss the COVID-19 vaccination. * She c/o left knee pain. * Patient has continued amlodipine for management of HTN. She admits to not utilizing this regularly due to side effects. * Patient denies any chest pain, pressure, or tightness with exertion. * She has hypothyroidism and is maintained on levothyroxine for management. She denies any adverse side effects. * She continues to take vitamin D supplementation. * Patient states that she has not been using mirtazapine for itching. [facility] Work Phone: History of Present illness Narrative* Patient has continued on amlodipine for management of HTN. She has been taking on 0.5 tablet due toside effects. Patient reports that if she takes a full tablet of amlodipine she feels forgetful. * Patient denies any chest pain, pressure, or tightness with exertion. * She is maintained on levothyroxine due to hypothyroidism. * Patient has continued on vitamin D supplementation. * Patient continues to utilize mirtazapine as needed for itching. [facility] Work Phone: History of Present illness Narrative* The patient is being seen for the subsequent annual wellness visit. * Past Medical, Surgical and Family History: reviewed and updated in chart. * Medications and Supplements: Review of all medications by a prescribing practitioner or clinical pharmacist (such as prescriptions, OTCs, herbal therapies and supplements) documented in the medical record. * No, the patient is not using opioids. * Patient Self Assessment of Health Status: good. * Tobacco use: Non-User * Alcohol use: Non-User * Illicit drug use: Non-User * Current diet: well balanced diet, does consume adequate fluids and does not consume caffeine. * Exercise Frequency: regularly. * Depression/Suicide Screening: . * During the past 2 weeks, the patient felt down, depressed or hopeless. * During the past 2 weeks, the patient has not felt little interest or pleasure in doing things. * PHQ-9 Depression Scale: * 1. Little interest or pleasure in doing things - not at all * 2. Feeling down, depressed or hopeless - several days * 3. Trouble falling asleep or sleeping too much - not at all * 4. Feeling tired or having little energy - not at all * 5. Poor appetite or overeating - not at all * 6. Feeling bad about self or failure or letting others down - several days * 7. Trouble concentrating on things - not at all * 8. Moving / speaking slowly or fidgety / restless - not at all * 9. Thought would be better off or hurting self - not at all * Total Score: 2/27 * Severity of depression is in remission. * How difficult have these problems made it for you to do your work, take care of things at home, or get along with people? Somewhat difficult. * Hearing Impairment: none. * Bathing: performs independently. * Dressing: performs independently. * Walking: performs independently. * Managing Finances: performs independently. * Shopping: performs independently. * Managing Medications: performs independently. * Housework / Basic Home Maintenance: performs independently. * Falls Risk Screening:. ZEESHAN has not fallen in the last 6 months. * Home safety risk factors: no grab bars in the bathroom. * Advance directives:. Advanced Care Planning discussed and documented advance care plan or surrogatedecision maker documented in the medical record. Patient has living will. Patient has healthcare POA. * 77 year old female presents for Medicare Wellness. * Patient reports her hydrochlorothiazide makes her faint and lightheaded when she takes it, so she stopped it. She reports that she had no problems with amlodipine but she was confused about the instructions and was taking the full 10 mg tablets before cutting it in half and then stopping it completely. When she did take 10 mg tablets, she reported no side effects at all. She is unsure of her family's history of high blood pressure. She denies dizziness. She doesn't have a working blood pressurecuff at home. * She takes her thyroid medication and toenail fungus medication. She stopped needing her sleep medication. * Discussed and reviewed medication list. Patient denies any medication side-effects. * Patient reports feeling tired but she has felt better after taking Aleve. * She has been eating chicken, fish, tofu, and vegetables mostly and steak rarely. * She denies constipation * Patient denies chest pain, chest pressure, or chest tightness on exertion. She reports when she mowed her lawn in the hot sun she felt very tired but denied any chest pain. She took an aspirin, rested, and drank water and felt better. [facility] Work Phone: History of Present illness Narrative* The patient is being seen for the subsequent annual wellness visit. * Past Medical, Surgical and Family History: reviewed and updated in chart. * Medications and Supplements: Review of all medications by a prescribing practitioner or clinical pharmacist (such as prescriptions, OTCs, herbal therapies and supplements) documented in the medical record. * No, the patient is not using opioids. * Patient Self Assessment of Health Status: good. * Tobacco use: Non-User * Alcohol use: Non-User * Illicit drug use: Non-User * Current diet: well balanced diet, does consume adequate fluids and does not consume caffeine. * Exercise Frequency: regularly. * Depression/Suicide Screening: . * During the past 2 weeks, the patient felt down, depressed or hopeless. * During the past 2 weeks, the patient has not felt little interest or pleasure in doing things. * PHQ-9 Depression Scale: * 1. Little interest or pleasure in doing things - not at all * 2. Feeling down, depressed or hopeless - several days * 3. Trouble falling asleep or sleeping too much - not at all * 4. Feeling tired or having little energy - not at all * 5. Poor appetite or overeating - not at all * 6. Feeling bad about self or failure or letting others down - several days * 7. Trouble concentrating on things - not at all * 8. Moving / speaking slowly or fidgety / restless - not at all * 9. Thought would be better off or hurting self - not at all * Total Score: / * Severity of depression is in remission. * How difficult have these problems made it for you to do your work, take care of things at home, or get along with people? Somewhat difficult. * Hearing Impairment: none. * Bathing: performs independently. * Dressing: performs independently. * Walking: performs independently. * Managing Finances: performs independently. * Shopping: performs independently. * Managing Medications: performs independently. * Housework / Basic Home Maintenance: performs independently. * Falls Risk Screening:. ZEESHAN has not fallen in the last 6 months. * Home safety risk factors: no grab bars in the bathroom. * Advance directives:. Advanced Care Planning discussed and documented advance care plan or surrogatedecision maker documented in the medical record. Patient has living will. Patient has healthcare POA. * 77 year old female presents for Medicare Wellness. * Patient reports her hydrochlorothiazide makes her faint and lightheaded when she takes it, so she stopped it. She reports that she had no problems with amlodipine but she was confused about the instructions and was taking the full 10 mg tablets before cutting it in half and then stopping it completely. When she did take 10 mg tablets, she reported no side effects at all. She is unsure of her family's history of high blood pressure. She denies dizziness. She doesn't have a working blood pressurecuff at home. * She takes her thyroid medication and toenail fungus medication. She stopped needing her sleep medication. * Discussed and reviewed medication list. Patient denies any medication side-effects. * Patient reports feeling tired but she has felt better after taking Aleve. * She has been eating chicken, fish, tofu, and vegetables mostly and steak rarely. * She denies constipation * Patient denies chest pain, chest pressure, or chest tightness on exertion. She reports when she mowed her lawn in the hot sun she felt very tired but denied any chest pain. She took an aspirin, rested, and drank water and felt better. [facility] Work Phone: History of Present illness Narrative* Zeeshan is a 77-year-old female, presenting for a 3-day history of productive cough, congestion, headache, and sinus pressure. She has been afebrile. * Patient denies any chills or shortness of breath. She has not taken a COVID-19 test. * Patient has a trip planned next Wednesday. [facility] Work Phone: History of Present illness Narrative* Zeeshan is a 77-year-old female, presenting for a 3-day history of productive cough, congestion, headache, and sinus pressure. She has been afebrile. * Patient denies any chills or shortness of breath. She has not taken a COVID-19 test. * Patient has a trip planned next Wednesday. 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 She inquires about obtaining a mammogram. Patient reports increased walking and attributes this to her weight gain,. Patient denies chest pain, pressure, and tightness upon exertion. She has no new allergies to report. Patient notes difficulty swallowing with specific foods.[facility] Work Phone: Reason for referral (narrative)* Consultation (Routine) - Authorized Specialty Diagnoses / Procedures Referred By Contac t Referred To Contact Primary Care Diagnoses Benign essential hypertension Procedures Follow Up In Advanced [facility] - PCP Carlos Yip MD [address] [place] [address] Referral ID Status Reason Start Date Expiration Date V isits Requested Visits Authorized [id number] Authorized 06/02/2023 11/29/2023 1 1 * Imaging (Routine) - Authorized Specialty Diagnoses / Procedures Referred By Contac t Referred To Contact Radiology Diagnoses Breast cancer screening by mammogram Procedures BI mammo bilateral screening tomosynthesis Carlos Yip MD [address] [place] [address], [address] [place] [address] Referral ID Status Reason Start Date Expiration Date Visits Requested Visits Authorized [id number] Authorized Perform Procedure 06/02/2023 11/29/[address] [facility] Work Phone: [facility] for referral (narrative)* Consultation (Routine) - Authorized Specialty Diagnoses / Procedures Referred By Contac t Referred To Contact Primary Care Diagnoses Medicare annual wellness visit, subsequent Procedures Follow Up In [facility] - PCP - Medicare Annual Carlos Yip MD [address] [place] [address] Referral ID Status Reason Start Date Expiration Date V isits Requested Visits Authorized [id number] Authorized 12/07/2023 12/06/2024 1 1 [facility] Work Phone: Family History No Family History Records FoundUnknown Family Member Name Dates Details Family history of diabetes m ellitus(V18.0, Z83.3) Comments:Other Status:Active Family history of hypertensi on(V17.49, Z82.49) Comments:Other Status:Active Mother Name Dates Details Family history of Parkinson' s disease(V17.2, Z82.0) Status:Active Family history of thyroid di sease(V18.19, Z83.49) Status:Active Father Name Dates Details Family history of Status:Active Family history of diabetes m ellitus(V18.0, Z83.3) Status:Active Unknown Family Member Name Dates Details Family history of diabetes m ellitus(V18.0, Z83.3) Comments:Other Status:Active Family history of hypertensi on(V17.49, Z82.49) Comments:Other Status:Active Mother Name Dates Details Family history of Parkinson' s disease(V17.2, Z82.0) Status:Active Family history of thyroid di sease(V18.19, Z83.49) Status:Active Father Name Dates Details Family history of Status:Active Family history of diabetes m ellitus(V18.0, Z83.3) Status:Active Unknown Family Member Name Dates Details Family history of diabetes m ellitus(V18.0, Z83.3) Comments:Other Status:Active Family history of hypertensi on(V17.49, Z82.49) Comments:Other Status:Active Mother Name Dates Details Family history of Parkinson' s disease(V17.2, Z82.0) Status:Active Family history of thyroid di sease(V18.19, Z83.49) Status:Active Father Name Dates Details Family history of (7 99.9, R99) Status:Active Family history of diabetes m ellitus(V18.0, Z83.3) Status:Active Unknown Family Member Name Dates Details Family history of diabetes m ellitus(V18.0, Z83.3) Comments:Other Status:Active Family history of hypertensi on(V17.49, Z82.49) Comments:Other Status:Active Mother Name Dates Details Family history of Parkinson' s disease(V17.2, Z82.0) Status:Active Family history of thyroid di sease(V18.19, Z83.49) Status:Active Father Name Dates Details Family history of (7 99.9, R99) Status:Active Family history of diabetes m ellitus(V18.0, Z83.3) Status:Active Unknown Family Member Name Dates Details Family history of Parkinson' s disease: Mother(V17.2, Z82.0) Status:Active Family history of thyroid di sease: Mother(V18.19, Z83.49) Status:Active : Father Status:Active Family history of diabetes m ellitus: Father, Other(V18.0, Z83.3) Status:Active Family history of hypertensi on: Other(V17.49, Z82.49) Status:Active Unknown Family Member Name Dates Details Family history of Parkinson' s disease: Mother(V17.2, Z82.0) Status:Active Family history of thyroid di sease: Mother(V18.19, Z83.49) Status:Active : Father Status:Active Family history of diabetes m ellitus: Father, Other(V18.0, Z83.3) Status:Active Family history of hypertensi on: Other(V17.49, Z82.49) Status:Active Unknown Family Member Name Dates Details Family history of Parkinson' s disease: Mother(V17.2, Z82.0) Status:Active Family history of thyroid di sease: Mother(V18.19, Z83.49) Status:Active : Father Status:Active Family history of diabetes m ellitus: Father, Other(V18.0, Z83.3) Status:Active Family history of hypertensi on: Other(V17.49, Z82.49) Status:Active Unknown Family Member Name Dates Details Family history of hypertensi on: Other(V17.49, Z82.49) Status:Active Family history of diabetes m ellitus: Father, Other(V18.0, Z83.3) Status:Active : Father Status:Active Family history of thyroid di sease: Mother(V18.19, Z83.49) Status:Active Family history of Parkinson' s disease: Mother(V17.2, Z82.0) Status:Active Unknown Family Member Name Dates Details Family history of Parkinson' s disease: Mother(V17.2, Z82.0) Status:Active Family history of thyroid di sease: Mother(V18.19, Z83.49) Status:Active : Father Status:Active Family history of diabetes m ellitus: Father, Other(V18.0, Z83.3) Status:Active Family history of hypertensi on: Other(V17.49, Z82.49) Status:Active Unknown Family Member Name Dates Details Family history of Parkinson' s disease: Mother(V17.2, Z82.0) Status:Active Family history of thyroid di sease: Mother(V18.19, Z83.49) Status:Active : Father Status:Active Family history of diabetes m ellitus: Father, Other(V18.0, Z83.3) Status:Active Family history of hypertensi on: Other(V17.49, Z82.49) Status:Active Unknown Family Member Name Dates Details Family history of Parkinson' s disease: Mother(V17.2, Z82.0) Status:Active Family history of thyroid di sease: Mother(V18.19, Z83.49) Status:Active : Father Status:Active Family history of diabetes m ellitus: Father, Other(V18.0, Z83.3) Status:Active Family history of hypertensi on: Other(V17.49, Z82.49) Status:Active Unknown Family Member Name Dates Details Family history of Parkinson' s disease: Mother(V17.2, Z82.0) Status:Active Family history of thyroid di sease: Mother(V18.19, Z83.49) Status:Active : Father Status:Active Family history of diabetes m ellitus: Father, Other(V18.0, Z83.3) Status:Active Family history of hypertensi on: Other(V17.49, Z82.49) Status:Active Unknown Family Member Name Dates Details Family history of Parkinson' s disease: Mother(V17.2, Z82.0) Status:Active Family history of thyroid di sease: Mother(V18.19, Z83.49) Status:Active : Father Status:Active Family history of diabetes m ellitus: Father, Other(V18.0, Z83.3) Status:Active Family history of hypertensi on: Other(V17.49, Z82.49) Status:Active Unknown Family Member Name Dates Details Family history of Parkinson' s disease: Mother(V17.2, Z82.0) Status:Active Family history of thyroid di sease: Mother(V18.19, Z83.49) Status:Active : Father Status:Active Family history of diabetes m ellitus: Father, Other(V18.0, Z83.3) Status:Active Family history of hypertensi on: Other(V17.49, Z82.49) Status:Active Unknown Family Member Name Dates Details Family history of Parkinson' s disease: Mother(V17.2, Z82.0) Status:Active Family history of thyroid di sease: Mother(V18.19, Z83.49) Status:Active : Father Status:Active Family history of diabetes m ellitus: Father, Other(V18.0, Z83.3) Status:Active Family history of hypertensi on: Other(V17.49, Z82.49) Status:Active Unknown Family Member Name Dates Details Family history of Parkinson' s disease: Mother(V17.2, Z82.0) Status:Active Family history of thyroid di sease: Mother(V18.19, Z83.49) Status:Active : Father Status:Active Family history of diabetes m ellitus: Father, Other(V18.0, Z83.3) Status:Active Family history of hypertensi on: Other(V17.49, Z82.49) Status:Active Chief Complaint Patient is a 76 year-old female here today for a Medicare Wellness Exam.* ZEESHAN ISIDRO is here for a follow-up for . * Pt is here for a 6 month follow up on hypertension,thyroid * Pt would like to discuss flu shot * Pt is here for a Medicare Wellness * Pt was given consent form and brochure * Pt is here for a Medicare Wellness * Pt was given consent form and brochure * cough, sinus, since wednesday/wednesday, runny nose, no fevers * flu * cough, sinus, since wednesday/wednesday, runny nose, no fevers * flu 6 month f/u htn, already flu shot, discuss medications Summary Purpose Advance Directives No Advanced Directives Records FoundNo Advanced Directives Records FoundNo Advanced Directives Records FoundNo Advanced Directives Records FoundNo Advanced Directives Records Found Additional Source Comments INFORMATION SOURCE (unrecogn ized section and content) DATE CREATED AUTHOR AUTHOR'S ORGANIZ ATION 03/18/2023 [facility] DATE CREATED AUTHOR AUTHOR'S ORGANIZ ATION 06/03/2023 [facility] DATE CREATED AUTHOR AUTHOR'S ORGANIZ ATION 06/06/2023 [facility] DATE CREATED AUTHOR AUTHOR'S ORGANIZ ATION 12/11/[address] [facility] Reason for Visit (unrecogniz ed section and content) Reason Comments Medicare Annual Wellness Visit Subsequen t Hypertension Hypothyroidism Reason Comments Follow-up 6 mo fuv bp, thy, no complaints,discuss amlopdipine, unsure of flu shot Specialty Diagnoses / Procedures Referred By Contlazara t Referred To Contact Primary Care Diagnoses Benign essential hypertension Procedures Follow Up In [facility] - PCP Carlos Yip MD [address] [place] [address] Referral ID Status Reason Start Date Expiration Date Visits Re quested Visits Authorized [id number] Closed 06/02/2023 11/29/2023 1 1 Care Teams (unrecognized sec tion and content) 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 Specialty Start Date End Date Carlos Yip MD [address] [place], [place] [id number] PCP - General 08/11/12 Carlos Yip MD [address] [place], [place] [address] PCP - [facility] Attributed Provider 11/29/21 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 Specialty Start Date End Date Carlos Yip MD [address] [place], [place] [id number] PCP - General 08/11/12 Carlos Yip MD [address] [place] [address] PCP - [facility] Attributed Provider 11/29/21 FOR RECORDS PERTAINING TO PATIENTS WHO ARE OR HAVE BEEN ENROLLED IN A CHEMICAL DEPENDENCY/SUBSTANCEABUSE PROGRAM, SOME INFORMATION MAY BE OMITTED. This clinical summary was aggregated from multiple sources. Caution should be exercised in using it in the provision of clinical care. This summary normalizes information from multiple sources, and as a consequence, information in this document may materially change the coding, format and clinical context of patient data. In addition, data may be omitted in some cases. CLINICAL DECISIONS SHOULD BE BASED ON THE PRIMARY CLINICAL RECORDS. [employer] [facility]. provides no warranty or guarantee of the accuracy or completeness of information in this document.
== END | disposition home or self-care (01) ==
LOC: OPBI 07:04
PROVIDERS: PCP Family Medicine; Referring Provider Family Medicine; Visit Provider Family Medicine
DX: Z12.31 Encounter for screening mammogram for malignant neoplasm of breast (principal)
CPT/HCPCS: 77063; 77067

== ENCOUNTER → 2025-01-15 | Outpatient (CLI) | payer MEDICARE, BC, SELFPAY ==
--- NOTE | 2025-01-15 08:11 | BI_ITS ---
PROCEDURE: SCRN MAMM (CAD)W/JAZ BILAT REASON FOR EXAM: F, Age 79 y/o, no family history. Routine annual follow-up. TECHNIQUE: Bilateral screening digital breast tomosynthesis with 2D and 3D images. Computer aided detection. COMPARISON: Prior exam(s) dating back to December 30, 2023.. FINDINGS: The breasts are heterogeneously dense which may obscure small masses. Small benign-appearing bilateral axillary lymph nodes. No suspicious masses, areas of developing architectural distortion, or suspicious calcifications. BI/SCRN MAMM (CAD)W/JAZ BILAT IMPRESSION: BI-RADS 2: BENIGN. RECOMMEND ANNUAL MAMMOGRAPHIC SCREENING. Follow-up code: Routine Follow-up The patient will be notified of the results by letter. Reading Location: [id number]
== END | disposition home or self-care (01) ==
PROVIDERS: PCP Family Medicine; Referring Provider Family Medicine; Visit Provider Family Medicine
DX: Z12.31 Encounter for screening mammogram for malignant neoplasm of breast (principal)
CPT/HCPCS: 77063; 77067